=== PATIENT | male | born 1985 | race Caucasian/White ===

== ENCOUNTER 2017-09-26 09:36 | Inpatient (IN) | END 2017-09-30 11:15 | disposition home or self-care (01) | DRG 386 ==

== ENCOUNTER 2018-01-18 21:22 | Emergency (ER) | END 2018-01-18 23:51 | disposition home or self-care (01) ==

== ENCOUNTER 2018-10-27 12:36 | Inpatient (IN) | payer BC ==
[~2018-10-27] VITALS: Ht 162.6 cm; Wt 70.0 kg
[~2018-10-27 12:36] MED LIST: BALS750C6 PO; PRED20TA PO
[2018-10-27 12:40] VITALS: Ht 162.6 cm; Wt 70.0 kg
[2018-10-27] MEDS ORDERED: CEFTRIAXONE 1 GM/50 ML (PMX) 50 ML IVPB STA (12:47)
[2018-10-27] MEDS ORDERED: SODIUM CHLORIDE 0.9% 1L BAG IV* STA (12:47)
[2018-10-27] MEDS ORDERED: morphine 4 MG/ML VIAL IV STA (13:15)
[2018-10-27] MEDS ORDERED: ONDANSETRON 4 MG INJ IV STA (13:15)
[2018-10-27] MEDS ORDERED: SOD CHLORIDE 0.9% 0 ML IV ONE (14:09)
--- NOTE | 2018-10-27 14:14 | ERD ---
ER Documentation Chief Complaint Chief Complaint RIGHT FLANK PAIN X 4 DAYS, DENIES DYSURIA, +BLOOD IN STOOL HPI This is a 33-year-old male who presents for evaluation of right flank pain for the last 4 days, he has a history of ulcerative colitis, and has had intermittent rectal bleeding, this is normal for him per the patient. He endorses nausea and generalized weakness, he does have a history of anemia and has been transfused in the past. He has no cough or shortness of breath. He denies dysuria. ROS All systems reviewed and are negative except as per history of present illness. Medications Home Meds Active Scripts Balsalazide Disodium (Balsalazide Disodium) 750 Mg Capsule, 2250 MG PO TID for 30 Days, CAP Prov:ELROY RABAGO 09/30/17 Discontinued Scripts Prednisone* (Prednisone*) 20 Mg Tab, 40 MG PO DAILY for 6 Days, TAB Prov:MIGULE LARRY MD 01/18/18 Prednisone* (Prednisone*) 20 Mg Tab, 40 MG PO DAILY for 30 Days, TAB Prov:ELROY RABAGO 09/30/17 Allergies Allergies: Coded Allergies: No Known Allergy (Unverified , 10/27/18) PMhx/Soc History of Surgery: No Anesthesia Reaction: No Hx Neurological Disorder: No Hx Respiratory Disorders: No Hx Cardiac Disorders: No Hx Psychiatric Problems: No Hx Miscellaneous Medical Probl: Yes (gastritis. GI bleed, ULCERATIVE COLITIS ) Hx Alcohol Use: Yes (socially; "quit in March") Hx Substance Use: Yes (marijuana 2days ago) Hx Tobacco Use: No Smoking Status: Never smoker Physical Exam Vitals Vital Signs Date Temp Pulse Resp B/P (MAP) Pulse Ox O2 O2 Flow FiO2 Time Delivery Rate 10/27/18 98.6 90 16 110/66 99 Room Air 14:00 (81) 10/27/18 100.8 113 18 129/62 99 12:40 (84) Physical Exam Const: Mild distress Head: Atraumatic Eyes: Normal Conjunctiva ENT: Normal External Ears, Nose and Mouth. Neck: Full range of motion. No meningismus. Resp: Clear to auscultation bilaterally Cardio: Tachycardic with regular rhythm, no murmurs Abd: Soft, non tender, non distended, no rebound or guarding, no McBurney's point tenderness. Normal bowel sounds Skin: No petechiae or rashes Back: No midline or flank tenderness Ext: No cyanosis, or edema Neur: Awake and alert Psych: Normal Mood and Affect Result Diagram: 10/27/18 1300 10/27/18 1300 Results 24 hrs Laboratory Tests Test 10/27/18 12:47 10/27/18 13:00 10/27/18 13:09 Urine Color YELLOW Urine Clarity CLEAR Urine pH 5.0 Urine Specific [place] 1.019 Urine Ketones NEGATIVE mg/dL Urine Nitrite NEGATIVE mg/dL Urine Bilirubin NEGATIVE mg/dL Urine Urobilinogen NEGATIVE mg/dL Urine Leukocyte Esterase NEGATIVE [place]/ul Urine Hemoglobin NEGATIVE mg/dL Urine Glucose NEGATIVE mg/dL Urine Total Protein NEGATIVE mg/dl White Blood Count 7.2 10^3/ul Red Blood Count 4.19 10^6/ul Hemoglobin 8.0 g/dl Hematocrit 28.6 % Mean Corpuscular Volume 68.3 fl Mean Corpuscular Hemoglobin 19.1 pg Mean Corpuscular 28.0 g/dl Hemoglobin Concent Red Cell Distribution Width 21.0 % Platelet Count 481 10^3/UL Mean Platelet Volume 7.9 fl Immature Granulocytes % 0.400 % Neutrophils % 71.4 % Lymphocytes % 16.8 % Monocytes % 8.8 % Eosinophils % 1.9 % Basophils % 0.7 % Nucleated Red Blood Cells % 0.0 /100WBC Immature Granulocytes # 0.030 10^3/ul Neutrophils # 5.1 10^3/ul Lymphocytes # 1.2 10^3/ul Monocytes # 0.6 10^3/ul Eosinophils # 0.1 10^3/ul Basophils # 0.1 10^3/ul Nucleated Red Blood Cells # 0.0 10^3/ul Prothrombin Time 12.2 Sec Prothrombin Time Ratio 1.0 INR International 0.89 Normalized Ratio Activated Partial Thromboplast 31.3 Sec Time Sodium Level 140 mmol/L Potassium Level 4.2 mmol/L Chloride Level 106 mmol/L Carbon Dioxide Level 25 mmol/L Anion Gap 9 Blood Urea Nitrogen 9 mg/dl Creatinine 0.94 mg/dl Est Glomerular Filtrat > 60 mL/min Rate mL/min Glucose Level 147 mg/dl Calcium Level 8.6 mg/dl Total Bilirubin 0.3 mg/dl Direct Bilirubin 0.00 mg/dl Indirect Bilirubin 0.3 mg/dl Aspartate Amino Transf (AST/SGOT) 26 IU/L Alanine 16 IU/L Aminotransferase (ALT/SGPT) Alkaline Phosphatase 83 IU/L Troponin I < 0.012 ng/ml Total Protein 7.7 g/dl Albumin 3.6 g/dl Globulin 4.10 g/dl Albumin/Globulin Ratio 0.87 Lipase 76 U/L POC Venous Lactate 1.5 mmol/L Current Medications Medications Dose Sig/Giorgio Start Time Status Last (Trade) Ordered Route PRN Stop Time Admin Dose Reason Admin Sodium 2,100 ml BOLUS OVER 2 10/27/18 DC 10/27/18 Chloride HOURS STAT 12:47 10/27/18 13:06 (NS) IV* 12:48 Ceftriaxone 50 ml @ ONCE STAT 10/27/18 DC 10/27/18 Sodium 100 mls/hr IVPB 12:47 10/27/18 13:13 13:16 Morphine 4 mg ONCE STAT 10/27/18 DC 10/27/18 Sulfate IV 13:15 10/27/18 13:34 (morphine) 13:26 Ondansetron 4 mg ONCE STAT 10/27/18 DC 10/27/18 HCl (Zofran IV 13:15 10/27/18 13:34 Inj) 13:26 Sodium 0 ml @ 0 Q0M ONCE 10/27/18 DC Chloride mls/hr IV 14:09 10/27/18 14:11 Ondansetron 4 mg BRIDGE ORDER 10/27/18 HCl (Zofran PRN IV 14:30 Inj) NAUSEA/VOMITI 10/28/18 14:29 NG 650 mg ER BRIDGE 10/27/18 Acetaminophen PRN PO 14:30 (Tylenol .MILD PAIN 10/28/18 14:29 Tab) 1-3 OR TEMP Procedures/MDM This is a 33-year-old male who presents for evaluation of fever, as well as generalized weakness. Patient had no peritoneal signs on exam, given his temperature 100.8 and tachycardia code sepsis was called. His CT abdomen pelvis did not show any acute findings and his urinalysis was negative, he was dosed empirically with ceftriaxone, however he does not have a source of infection. Another significant finding was his hemoglobin 8.0, in the setting of fever and weakness, shared decision-making was made to transfuse, as the patient has symptoms concerning for symptomatic anemia. Primary differential consideration is infection versus a inflammatory bowel disease flare. EKG: Rate/Rhythm: Normal Sinus Rhythm QRS, ST, T-waves: No changes consistent w/ acute ischemia Impression: No evidence of ischemia or arrhythmia Accepting Care Team: Current data and ongoing care discussed. Primary: Destiny Consulting: none Outstanding Data: none Departure Diagnosis: Primary Impression: Fever Fever type: unspecified Qualified Codes: R50.9 - Fever, unspecified Additional Impression: Anemia Anemia type: unspecified type Qualified Codes: D64.9 - Anemia, unspecified Condition: Stable ELROY BOATENG MD Oct 27, 2018 14:14
[2018-10-27] MEDS ORDERED: ONDANSETRON 4 MG INJ IV PRN (14:30)
[2018-10-27] MEDS ORDERED: ACETAMINOPHEN 325 MG TAB PO PRN ×2 (14:30→18:00)
[2018-10-27 16:40] VITALS: BP 109/57; PULSE 71; RESP 18
--- NOTE | 2018-10-27 17:37 | HP ---
Date/Time of Note Date/Time of Note DATE: 10/27/18 TIME: 17:36 Assessment/Plan VTE Prophylaxis SCD contraindicated: low risk/ambulating Pharmacological prophylaxis: NA/contraindicated Pharm contraindication: bleeding Lines/Catheters IV Catheter Type (from Nrsg): Peripheral IV Assessment/Plan Hospital Course Chief complaint abdominal back pain History of present illness Back pain left greater than right for 1 week. No known aggravating or relieving factors. Denies any injury. Subjective fever. No previous similar pain. Over the last 2 weeks patient has lost his appetite.+ nausea. Abdominal pain unable to describe. No known aggravating or relieving factors. States he had a cheeseburger recently and was told to avoid cheeseburgers. After the cheese burger his left leg felt swollen. Has a history of colitis and states he is regular with his medicines. Has not seen GI in 1 year. -Hematochezia 2 weeks. Some darker stools as well. ER: Stable vital signs Past medical history Colitis suspected ulcerative colitis; colonoscopy all of you April 2017 Past tobacco Marijuana use Past surgical history None Social history Past tobacco; occasional marijuana no alcohol Family history No family history of early coronary disease cancer stroke Allergies No known drug allergies Review of systems Neuro: No loss of speech vision or headache Cardiovascular: No chest pain no dyspnea no edema Lungs: No cough no wheezing no fever Abdomen: Pain nausea diarrhea Genitourinary: Abdominal pain chills possible fever, no dysuria Musculoskeletal: Back pain no gait dysfunction no rash no itching no edema; one episode of left leg pain Psychiatry: The patient has a stable mood without any severe agitation anxiety depression Endocrine: No past diabetes dyslipidemia or thyroid dysfunction Hematological: Hematochezia possible melena no hematemesis PE No pallor icterus adenopathy JVD droop Regular no murmur gallop Clear Bs diminished present mild tender no rigidity rebound guarding Back: No point tenderness, no cvat No edema Assessment and plan 1. Colitis, stable, rule out C. difficile. 2. Hematochezia secondary to colitis stable observe. Transfuse if less than 7.5 3. Symptomatic anemia stable observe 4. Back pain, inflammatory arthritis? 5. Past tobacco 6. Substance/marijuana use Result Diagram: 10/27/18 1300 10/27/18 1300 Results 24hrs Laboratory Tests Test 10/27/18 12:47 10/27/18 13:00 10/27/18 13:09 10/27/18 14:33 Urine Color YELLOW Urine Clarity CLEAR Urine pH 5.0 Urine Specific [place] 1.019 Urine Ketones NEGATIVE Urine Nitrite NEGATIVE Urine Bilirubin NEGATIVE Urine Urobilinogen NEGATIVE Urine Leukocyte Esterase NEGATIVE Urine Hemoglobin NEGATIVE Urine Glucose NEGATIVE Urine Total Protein NEGATIVE White Blood Count 7.2 Red Blood Count 4.19 #L Hemoglobin 8.0 L Hematocrit 28.6 L Mean Corpuscular Volume 68.3 L Mean Corpuscular 19.1 #L Hemoglobin Mean Corpuscular 28.0 L Hemoglobin Concent Red Cell Distribution 21.0 #H Width Platelet Count 481 H Mean Platelet Volume 7.9 Immature Granulocytes % 0.400 Neutrophils % 71.4 Lymphocytes % 16.8 Monocytes % 8.8 Eosinophils % 1.9 Basophils % 0.7 Nucleated Red Blood 0.0 Cells % Immature Granulocytes # 0.030 Neutrophils # 5.1 Lymphocytes # 1.2 Monocytes # 0.6 Eosinophils # 0.1 Basophils # 0.1 Nucleated Red Blood 0.0 Cells # Prothrombin Time 12.2 Prothrombin Time Ratio 1.0 INR International 0.89 Normalized Ratio Activated 31.3 Partial Thromboplast Time Sodium Level 140 Potassium Level 4.2 Chloride Level 106 Carbon Dioxide Level 25 Anion Gap 9 Blood Urea Nitrogen 9 Creatinine 0.94 Est Glomerular Filtrat > 60 Rate mL/min Glucose Level 147 Calcium Level 8.6 Total Bilirubin 0.3 Direct Bilirubin 0.00 Indirect Bilirubin 0.3 Aspartate Amino 26 Transf (AST/SGOT) Alanine 16 Aminotransferase (ALT/SG PT) Alkaline Phosphatase 83 Troponin I < 0.012 Total Protein 7.7 Albumin 3.6 Globulin 4.10 H Albumin/Globulin Ratio 0.87 Lipase 76 POC Venous Lactate 1.5 Lactic Acid Level 0.7 HPI/ROS Admit Date/Time Admit Date/Time Oct 27, 2018 at 14:15 PMH/Family/Social Past Medical History Medications Current Medications Ondansetron HCl (Zofran Inj) 4 mg BRIDGE ORDER PRN IV NAUSEA/VOMITING; Start 10/27/18 at 14:30; Stop 10/28/18 at 14:29 Acetaminophen (Tylenol Tab) 650 mg ER BRIDGE PRN PO .MILD PAIN 1-3 OR TEMP; Start 10/27/18 at 14:30; Stop 10/28/18 at 14:29 Coded Allergies: No Known Allergy (Unverified , 10/27/18) Social History Smoking Status: Never smoker Exam/Review of Systems Vital Signs Vitals Vital Signs Date Temp Pulse Resp B/P (MAP) Pulse Ox O2 O2 Flow FiO2 Time Delivery Rate 10/27/18 98.9 71 18 109/57 96 Room Air 16:40 (74) JUDAH CROSS MD Oct 27, 2018 17:37
[2018-10-27] MEDS ORDERED: ACETAMINOPHEN 650 MG SUPP PR PRN (18:00)
[2018-10-27] MEDS ORDERED: NACL 0.9% 3 ML SYG IV SCH (18:00)
[2018-10-27] MEDS: DEXTROSE 5%-0.45% NACL 1,000 ML IV SCH (18:48)
[2018-10-27] MEDS: FAMOTIDINE 20 MG INJ IV SCH (20:08)
[2018-10-27 20:11] VITALS: BP 106/58; PULSE 80; RESP 18
[2018-10-27] MEDS: morphine 2 MG INJ IV PRN (20:14)
[2018-10-27] MEDS ORDERED: BALSALAZIDE 750 MG CAP PO SCH (21:00)
[2018-10-28] MEDS: morphine 2 MG INJ IV PRN ×5 (00:42→20:27)
[2018-10-28 01:52] VITALS: BP 109/60; PULSE 75; RESP 18
[2018-10-28] MEDS: DEXTROSE 5%-0.45% NACL 1,000 ML IV SCH ×3 (04:14→21:33)
[2018-10-28 07:14] VITALS: BP 105/65; PULSE 72; RESP 15
[2018-10-28] MEDS: FAMOTIDINE 20 MG INJ IV SCH ×2 (09:39→20:28)
[2018-10-28] MEDS: metroNIDAZOLE 500 MG/NS (PMX) 100 ML IVPB SCH ×3 (09:40→21:34)
--- NOTE | 2018-10-28 13:16 | CONS ---
Assessment/Plan Assessment/Plan Hospital Course (Demo Recall) Summary Assessment and Plan: Assessment: UC flare? -Elevated CRP/ESR, bloody diarrhea up to 4-5 episode per day Lower back pain Epigastric pain -PUD versus gastritis versus secondary to chronic marijuana use Chronic marijuana use Plan: PPI BID Clear Liquid diet Start Solu-Medrol 20 mg IV every 8 hours Form as he does not have Colazal therefore will stop and start Delzicol EGD/colonoscopy tomorrow Endoscopy - risks/benefits/alternatives/indications of procedure and sedation/anesthesia discussed with patient who states understanding and gives informed consent to proceed. Patient is in collaboration with Dr. Weeks CC: FREDDIE WEEKS MD ; Consultation Date/Type/Reason Admit Date/Time Oct 27, 2018 at 14:15 Date of Consultation: Oct 28, 2018 Type of Consult GI Reason for Consultation Anemia/Hematochezia - History fo UC? Date/Time of Note DATE: 10/28/18 TIME: 13:14 Hx of Present Illness This is a 33-year-old male with past medical history of anemia and diagnosis of UC in 2017 year ago at [facility]. Currently on mesalamine patient has not seen a GI physician in 1 year. He presented to the hospital with complaints of lower back pain associated diarrhea described as watery going up to 4-5 times per day and noted maroon blood in stool. With work-up patient noted to have iron deficiency anemia and has complains of epigastric pain without nausea/vomiting melena. CT abdomen pelvis without contrast was obtained showing no evidence of urolithiasis, obstructive uropathy, diverticulitis or appendicitis. No intra-peritoneal or retroperitoneal abscess noted. C. difficile was obtained and negative blood cultures x2 show no growth x1 day urine culture x24 hours shows no growth hemoglobin rechecked today shows a heme globin is 7.6 with microcytic indices. Weighted CRP/ESR. Given clinical picture we will start patient on Solu-Medrol 20 mg every 8 hours. We will prep patient and plan for endoscopic evaluation with EGD/colonoscopy tomorrow. Pending findings patient may also require CT enterography to assess small bowel. Review of Systems: A 12 system, review was conducted and is negative except as noted in the HPI or here. Past Medical History Home Meds Active Scripts Balsalazide Disodium (Balsalazide Disodium) 750 Mg Capsule, 2250 MG PO TID for 30 Days, CAP Prov:ELROY RABAGO 09/30/17 Discontinued Scripts Prednisone* (Prednisone*) 20 Mg Tab, 40 MG PO DAILY for 6 Days, TAB Prov:MIGUEL LARRY MD 01/18/18 Prednisone* (Prednisone*) 20 Mg Tab, 40 MG PO DAILY for 30 Days, TAB Prov:ELROY RABAGO 09/30/17 Medications Current Medications Ondansetron HCl (Zofran Inj) 4 mg BRIDGE ORDER PRN IV NAUSEA/VOMITING; Start 10/27/18 at 14:30; Stop 10/28/18 at 14:29 Acetaminophen (Tylenol Tab) 650 mg ER BRIDGE PRN PO .MILD PAIN 1-3 OR TEMP; Start 10/27/18 at 14:30; Stop 10/28/18 at 14:29 Balsalazide (Colazal) 2,250 mg TID PO ; Start 10/27/18 at 21:00; Status UNV Dextrose/Sodium Chloride 1,000 ml @ 100 mls/hr Q10H IV Last administered on 10/28/18at 04:14; Admin Dose 100 MLS/HR; Start 10/27/18 at 17:53 IV Flush (NS 3 ml) 3 ml PER PROTOCOL IV ; Start 10/27/18 at 18:00 Ondansetron HCl (Zofran Inj) 4 mg Q4 PRN IV NAUSEA/VOMITING; Start 10/27/18 at 18:00 Acetaminophen (Tylenol Tab) 650 mg Q6H PRN PO .PAIN 1-3 OR TEMP; Start 10/27/18 at 18:00 Acetaminophen (Tylenol Supp) 650 mg Q6H PRN [place] .PAIN 1-3 OR TEMP; Start 10/27/18 at 18:00 Acetaminophen/ Hydrocodone Bitart ([place] (5/325)) 1 tab Q6H PRN PO .MOD PAIN 4- 6; Start 10/27/18 at 18:00 Morphine Sulfate (morphine) 2 mg Q4H PRN IV .SEVERE PAIN 7-10 Last administered on 10/28/18at 09:40; Admin Dose 2 MG; Start 10/27/18 at 18:00 Famotidine (Pepcid Iv) 20 mg Q12 IV Last administered on 10/28/18at 09:39; Admin Dose 20 MG; Start 10/27/18 at 21:00 Metronidazole 100 ml @ 100 mls/hr Q8 IVPB Last administered on 10/28/18at 09: 40; Admin Dose 100 MLS/HR; Start 10/28/18 at 09:00 Allergies: Coded Allergies: No Known Allergy (Unverified , 10/27/18) Social History Smoking Status: Unknown if ever smoked Exam/Review of Systems Exam Vitals Vital Signs Date Temp Pulse Resp B/P (MAP) Pulse Ox O2 O2 Flow FiO2 Time Delivery Rate 10/28/18 99.2 72 15 105/65 98 Room Air 07:14 (78) Intake and Output 10/27/18 10/27/18 10/28/18 1515:00 23:00 07:00 IntakeIntake Total 1075 ml BalanceBalance 1075 ml Exam PHYSICAL EXAMINATION: GENERAL: Well developed, well nourished, alert & oriented x 3, in no acute distress SKIN: No lesions HEAD: Normocephalic, atraumatic, no tenderness. EYES: Pupils equal reactive to light and accommodation, no discharge. EARS/NOSE AND THROAT: Ears normal, nose normal. NECK: Supple, no masses CHEST: Inspection within normal limits. CARDIOVASCULAR: Heart: Regular rate and rhythm RESPIRATORY: Lungs clear to auscultation and percussion, no wheezing, no rubs GASTROINTESTINAL AND LIVER: Abdomen: Soft, non tenderness, non-distended, no hernias, no masses, normoactive bowel sounds. Rectal: Deferred. EXTREMITIES: No cyanosis, clubbing or edema. Results Result Diagram: 10/28/18 0806 10/28/18 0805 Results 24hrs Laboratory Tests Test 10/27/18 14:33 10/27/18 17:38 10/27/18 17:40 10/27/18 19:02 Lactic Acid Level 0.7 0.8 C-Reactive Protein 6.1 H Erythrocyte 45 H Sedimentation Rate Test 10/28/18 08:05 10/28/18 08:06 Sodium Level 138 Potassium Level 3.9 Chloride Level 107 Carbon Dioxide Level 25 Anion Gap 6 Blood Urea Nitrogen 6 L Creatinine 0.81 Est Glomerular Filtrat > 60 Rate mL/min Glucose Level 95 # Hemoglobin A1c 5.7 Calcium Level 8.1 L Phosphorus Level 3.3 Magnesium Level 1.7 Iron Level 17 L Total Iron Binding 293 Capacity Percent Iron 6 L Saturation Total Bilirubin 0.3 Direct Bilirubin 0.00 Indirect Bilirubin 0.3 Aspartate Amino 16 Transf (AST/SGOT) Alanine 18 Aminotransferase (ALT/ SGPT) Alkaline Phosphatase 68 Lactate Dehydrogenase 229 L Total Protein 6.3 # Albumin 2.9 L Globulin 3.40 H Albumin/Globulin Ratio 0.85 Lipase 62 Thyroid Stimulating 0.742 Hormone (TSH) White Blood Count 6.8 Red Blood Count 3.85 L Hemoglobin 7.6 L Hematocrit 26.5 L Mean Corpuscular 68.8 L Volume Mean Corpuscular 19.7 L Hemoglobin Mean Corpuscular 28.7 L Hemoglobin Concent Red Cell Distribution 20.8 H Width Platelet Count 433 H Mean Platelet Volume 7.9 Immature Granulocytes 0.400 % Neutrophils % 67.5 Lymphocytes % 15.9 Monocytes % 13.0 H Eosinophils % 2.8 Basophils % 0.4 Nucleated Red Blood 0.0 Cells % Immature Granulocytes 0.030 # Neutrophils # 4.6 Lymphocytes # 1.1 Monocytes # 0.9 Eosinophils # 0.2 Basophils # 0.0 Nucleated Red Blood 0.0 Cells # Medications Medication Current Medications Ondansetron HCl (Zofran Inj) 4 mg BRIDGE ORDER PRN IV NAUSEA/VOMITING; Start 10/27/18 at 14:30; Stop 10/28/18 at 14:29 Acetaminophen (Tylenol Tab) 650 mg ER BRIDGE PRN PO .MILD PAIN 1-3 OR TEMP; Start 10/27/18 at 14:30; Stop 10/28/18 at 14:29 Balsalazide (Colazal) 2,250 mg TID PO ; Start 10/27/18 at 21:00; Status UNV Dextrose/Sodium Chloride 1,000 ml @ 100 mls/hr Q10H IV Last administered on 10/28/18at 04:14; Admin Dose 100 MLS/HR; Start 10/27/18 at 17:53 IV Flush (NS 3 ml) 3 ml PER PROTOCOL IV ; Start 10/27/18 at 18:00 Ondansetron HCl (Zofran Inj) 4 mg Q4 PRN IV NAUSEA/VOMITING; Start 10/27/18 at 18:00 Acetaminophen (Tylenol Tab) 650 mg Q6H PRN PO .PAIN 1-3 OR TEMP; Start 10/27/18 at 18:00 Acetaminophen (Tylenol Supp) 650 mg Q6H PRN [place] .PAIN 1-3 OR TEMP; Start 10/27/18 at 18:00 Acetaminophen/ Hydrocodone Bitart ([place] (5/325)) 1 tab Q6H PRN PO .MOD PAIN 4- 6; Start 10/27/18 at 18:00 Morphine Sulfate (morphine) 2 mg Q4H PRN IV .SEVERE PAIN 7-10 Last administered on 10/28/18at 09:40; Admin Dose 2 MG; Start 10/27/18 at 18:00 Famotidine (Pepcid Iv) 20 mg Q12 IV Last administered on 10/28/18 09:39; Admin Dose 20 MG; Start 10/27/18 at 21:00 Metronidazole 100 ml @ 100 mls/hr Q8 IVPB Last administered on 10/28/18 09:40; Admin Dose 100 MLS/HR; Start 10/28/18 at 09:00 OFELIA CUNNINGHAM Oct 28, 2018 13:16
[2018-10-28] MEDS ORDERED: BISACODYL (EC) 5 MG TAB PO ONE (14:00)
[2018-10-28] MEDS: METHYLPREDNISOLONE 40 MG INJ IV SCH ×2 (14:17→21:33)
[2018-10-28 14:43] VITALS: BP 105/60; PULSE 75; RESP 15
--- NOTE | 2018-10-28 17:07 | PN ---
Date/Time of Note Date/Time of Note DATE: 10/28/18 TIME: 17:07 Assessment/Plan VTE Prophylaxis Risk score (from Ns)>0 risk: 1 SCD applied (from Ns): Yes Pharmacological prophylaxis: NA/contraindicated Pharm contraindication: bleeding Lines/Catheters IV Catheter Type (from [facility]): Peripheral IV Urinary Cath still in place: No Assessment/Plan Hospital Course SUBJECTIVE: Continues to complain of abdominal pain and bloody diarrhea. OBJECTIVE: Physical Exam General: Adequately build 33 year-old male lying in bed in no apparent distress. HEENT: Normocephalic, atraumatic. Eyes: Anicteric sclerae, conjunctivae clear. E NT: Nasal septum midline, oral mucosa moist. Neck supple, no JVD noticed. Respiratory: Bilaterally clear breath sounds. No use of accessory muscles of respiration. No adventitious breath sounds. Cardiovascular: S1, S2 heard. No murmurs or gallops. Abdomen: Soft, nontender, and nondistended. Bowel sounds positive in all 4 quadrants. Genitourinary: Deferred. Extremities: No cyanosis, no clubbing, no edema. Peripheral pulses palpable. Neurologic: Cranial nerves II through XII grossly intact. The patient is awake, alert, and oriented. Skin: Normal skin turgor. No skin rashes. Labs & Vitals per chart ASSESSMENT & PLAN 33-year-old male with a past medical history of anemia and history of ulcerative colitis. He presented to the emergency room with chief complaint of lower back pain with associated diarrhea and melena. The patient was noticed to have underlying microcytic, hypochromic anemia and was admitted to inpatient setting for further treatment and evaluation. 1. Abdominal pain. Etiology unclear. CT scan of the abdomen and pelvis negative for any acute findings. Continue H2 receptor blockers. Patient scheduled for esophagogastroduodenoscopy. 2. Possible underlying ulcerative colitis flare. Continue mesalamine. Continue IV Solu-Medrol. Being followed by gastroenterology. 3. Microcytic, hypochromic anemia. Continue to replace blood products as necessary. 4. Chronic marijuana use. Cessation advised. 5. Fluids, electrolytes, and nutrition. IV fluids. N.p.o. except for medications. 6. DVT prophylaxis Bilateral SCDs. 7. Plan. Continue mesalamine and IV Solu-Medrol. Replace blood products as needed. Await esophagogastroduodenoscopy and colonoscopy. The patient was seen in collaboration with Dr. Allison. Result Diagram: 10/28/18 0806 10/28/18 0805 Results 24hrs Laboratory Tests Test 10/27/18 17:38 10/27/18 17:40 10/27/18 19:02 10/28/18 08:05 C-Reactive Protein 6.1 H Lactic Acid Level 0.8 Erythrocyte 45 H Sedimentation Rate Sodium Level 138 Potassium Level 3.9 Chloride Level 107 Carbon Dioxide Level 25 Anion Gap 6 Blood Urea Nitrogen 6 L Creatinine 0.81 Est Glomerular Filtrat > 60 Rate mL/min Glucose Level 95 # Hemoglobin A1c 5.7 Calcium Level 8.1 L Phosphorus Level 3.3 Magnesium Level 1.7 Iron Level 17 L Total Iron Binding 293 Capacity Percent Iron 6 L Saturation Total Bilirubin 0.3 Direct Bilirubin 0.00 Indirect Bilirubin 0.3 Aspartate Amino 16 Transf (AST/SGOT) Alanine 18 Aminotransferase (ALT/ SGPT) Alkaline Phosphatase 68 Lactate Dehydrogenase 229 L Total Protein 6.3 # Albumin 2.9 L Globulin 3.40 H Albumin/Globulin Ratio 0.85 Lipase 62 Thyroid Stimulating 0.742 Hormone (TSH) Test 10/28/18 08:06 White Blood Count 6.8 Red Blood Count 3.85 L Hemoglobin 7.6 L Hematocrit 26.5 L Mean Corpuscular 68.8 L Volume Mean Corpuscular 19.7 L Hemoglobin Mean Corpuscular 28.7 L Hemoglobin Concent Red Cell Distribution 20.8 H Width Platelet Count 433 H Mean Platelet Volume 7.9 Immature Granulocytes 0.400 % Neutrophils % 67.5 Lymphocytes % 15.9 Monocytes % 13.0 H Eosinophils % 2.8 Basophils % 0.4 Nucleated Red Blood 0.0 Cells % Immature Granulocytes 0.030 # Neutrophils # 4.6 Lymphocytes # 1.1 Monocytes # 0.9 Eosinophils # 0.2 Basophils # 0.0 Nucleated Red Blood 0.0 Cells # Exam/Review of Systems Exam Vitals Vital Signs Date Temp Pulse Resp B/P (MAP) Pulse Ox O2 O2 Flow FiO2 Time Delivery Rate 10/28/18 99.4 75 15 105/60 98 Room Air 14:43 (75) Intake and Output 10/27/18 10/27/18 10/28/18 1414:59 22:59 06:59 IntakeIntake Total 1075 ml BalanceBalance 1075 ml Results Results 24hrs Laboratory Tests Test 10/27/18 17:38 10/27/18 17:40 10/27/18 19:02 10/28/18 08:05 C-Reactive Protein 6.1 H Lactic Acid Level 0.8 Erythrocyte 45 H Sedimentation Rate Sodium Level 138 Potassium Level 3.9 Chloride Level 107 Carbon Dioxide Level 25 Anion Gap 6 Blood Urea Nitrogen 6 L Creatinine 0.81 Est Glomerular Filtrat > 60 Rate mL/min Glucose Level 95 # Hemoglobin A1c 5.7 Calcium Level 8.1 L Phosphorus Level 3.3 Magnesium Level 1.7 Iron Level 17 L Total Iron Binding 293 Capacity Percent Iron 6 L Saturation Total Bilirubin 0.3 Direct Bilirubin 0.00 Indirect Bilirubin 0.3 Aspartate Amino 16 Transf (AST/SGOT) Alanine 18 Aminotransferase (ALT/ SGPT) Alkaline Phosphatase 68 Lactate Dehydrogenase 229 L Total Protein 6.3 # Albumin 2.9 L Globulin 3.40 H Albumin/Globulin Ratio 0.85 Lipase 62 Thyroid Stimulating 0.742 Hormone (TSH) Test 10/28/18 08:06 White Blood Count 6.8 Red Blood Count 3.85 L Hemoglobin 7.6 L Hematocrit 26.5 L Mean Corpuscular 68.8 L Volume Mean Corpuscular 19.7 L Hemoglobin Mean Corpuscular 28.7 L Hemoglobin Concent Red Cell Distribution 20.8 H Width Platelet Count 433 H Mean Platelet Volume 7.9 Immature Granulocytes 0.400 % Neutrophils % 67.5 Lymphocytes % 15.9 Monocytes % 13.0 H Eosinophils % 2.8 Basophils % 0.4 Nucleated Red Blood 0.0 Cells % Immature Granulocytes 0.030 # Neutrophils # 4.6 Lymphocytes # 1.1 Monocytes # 0.9 Eosinophils # 0.2 Basophils # 0.0 Nucleated Red Blood 0.0 Cells # Medications Medication Current Medications Dextrose/Sodium Chloride 1,000 ml @ 100 mls/hr Q10H IV Last administered on 10/28/18at 04:14; Admin Dose 100 MLS/HR; Start 10/27/18 at 17:53 IV Flush (NS 3 ml) 3 ml PER PROTOCOL IV ; Start 10/27/18 at 18:00 Ondansetron HCl (Zofran Inj) 4 mg Q4 PRN IV NAUSEA/VOMITING; Start 10/27/18 at 18:00 Acetaminophen (Tylenol Tab) 650 mg Q6H PRN PO .PAIN 1-3 OR TEMP; Start 10/27/18 at 18:00 Acetaminophen (Tylenol Supp) 650 mg Q6H PRN [place] .PAIN 1-3 OR TEMP; Start 10/27/18 at 18:00 Acetaminophen/ Hydrocodone Bitart ([place] (5/325)) 1 tab Q6H PRN PO .MOD PAIN 4- 6; Start 10/27/18 at 18:00 Morphine Sulfate (morphine) 2 mg Q4H PRN IV .SEVERE PAIN 7-10 Last administered on 10/28/18at 15:53; Admin Dose 2 MG; Start 10/27/18 at 18:00 Famotidine (Pepcid Iv) 20 mg Q12 IV Last administered on 10/28/18at 09:39; Admin Dose 20 MG; Start 10/27/18 at 21:00 Metronidazole 100 ml @ 100 mls/hr Q8 IVPB Last administered on 10/28/18at 14:18; Admin Dose 100 MLS/HR; Start 10/28/18 at 09:00 Methylprednisolone Sodium Succinate (Solu-Medrol) 20 mg Q8 IV Last administered on 10/28/18at 14:17; Admin Dose 20 MG; Start 10/28/18 at 14:00 Magnesium Citrate (Citroma) 300 ml ONCE ONCE PO ; Start 10/28/18 at 17:30; Stop 10/28/18 at 17:31 Polyethylene Glycol (Miralax) 119 gm ONCE ONCE PO ; Start 10/28/18 at 18:30; Stop 10/28/18 at 18:31 Polyethylene Glycol (Miralax) 119 gm 2ND DOSE (GI PREP) ONCE PO ; Start 10/29/18 at 06:00; Stop 10/29/18 at 06:01 Bisacodyl (Dulcolax) 10 mg 2ND DOSE (GI PREP) ONCE PO ; Start 10/29/18 at 08:00; Stop 10/29/18 at 08:01 Mesalamine (Delzicol Dr) 800 mg TID PO ; Start 10/28/18 at 21:00 MADELAINE MCCALL NP Oct 28, 2018 17:07
[2018-10-28] MEDS ORDERED: MAGNESIUM CITRATE 300 ML BTL PO ONE (17:30)
[2018-10-28] MEDS ORDERED: POLYETHYLENE GLYCOL 3350 119 GM POWDER PO ONE (18:30)
[2018-10-28 19:43] VITALS: BP 105/64; PULSE 70; RESP 18
[2018-10-28] MEDS: MESALAMINE (EC) 400 MG CAP PO SCH (20:28)
[2018-10-28] MEDS: HYDROCODONE/APAP (5/325) TAB PO PRN (23:23)
[2018-10-29] VITALS (10 sets, daily range): BP systolic 88–114; BP diastolic 47–68; PULSE 54–74; RESP 14–24
[2018-10-29] MEDS: METHYLPREDNISOLONE 40 MG INJ IV SCH ×3 (05:22→21:14)
[2018-10-29] MEDS: metroNIDAZOLE 500 MG/NS (PMX) 100 ML IVPB SCH ×3 (05:23→21:13)
[2018-10-29] MEDS ORDERED: POLYETHYLENE GLYCOL 3350 119 GM POWDER PO ONE (06:00)
[2018-10-29] MEDS ORDERED: BISACODYL (EC) 5 MG TAB PO ONE (08:00)
[2018-10-29] MEDS: FAMOTIDINE 20 MG INJ IV SCH ×2 (08:10→21:13)
[2018-10-29] MEDS: MESALAMINE (EC) 400 MG CAP PO SCH ×3 (08:10→21:12)
[2018-10-29] MEDS: morphine 2 MG INJ IV PRN ×3 (09:06→19:51)
[2018-10-29] MEDS: DEXTROSE 5%-0.45% NACL 1,000 ML IV SCH ×2 (11:30→19:53)
--- NOTE | 2018-10-29 13:26 | PN ---
Date/Time of Note Date/Time of Note DATE: 10/29/18 TIME: 13:26 Assessment/Plan VTE Prophylaxis Risk score (from Nsg)>0 risk: 0 SCD applied (from Nsg): No SCD contraindicated: other Pharmacological prophylaxis: NA/contraindicated Pharm contraindication: low risk/ambulating, bleeding Lines/Catheters IV C[facility]ter Type (from [facility]): Peripheral IV Urinary Cath still in place: No Assessment/Plan Hospital Course SUBJECTIVE: Continues to complain of abdominal pain. Denies any blood in stool. OBJECTIVE: Physical Exam General: Adequately build 33 year-old male lying in bed in no apparent distress. HEENT: Normocephalic, atraumatic. Eyes: Anicteric sclerae, conjunctivae clear. ENT: Nasal septum midline, oral mucosa moist. Neck supple, no JVD noticed. Respiratory: Bilaterally clear breath sounds. No use of accessory muscles of respiration. No adventitious breath sounds. Cardiovascular: S1, S2 heard. No murmurs or gallops. Abdomen: Soft, nontender, and nondistended. Bowel sounds positive in all 4 quadrants. Genitourinary: Deferred. Extremities: No cyanosis, no clubbing, no edema. Peripheral pulses palpable. Neurologic: Cranial nerves II through XII grossly intact. The patient is awake, alert, and oriented. Skin: Normal skin turgor. No skin rashes. Labs & Vitals per chart ASSESSMENT & PLAN 33-year-old male with a past medical history of anemia and history of ulcerative colitis. He presented to the emergency room with chief complaint of lower back pain with associated diarrhea and melena. The patient was noticed to have underlying microcytic, hypochromic anemia and was admitted to inpatient setting for further treatment and evaluation. 1. Abdominal pain. Etiology unclear. CT scan of the abdomen and pelvis negative for any acute findings. Continue H2 receptor blockers. Patient scheduled for esophagogastroduodenoscopy. 2. Possible underlying ulcerative colitis flare. Continue mesalamine. Continue IV Solu-Medrol. Being followed by gastroenterology. 3. Microcytic, hypochromic anemia. Continue to replace blood products as necessary. 4. Chronic marijuana use. Cessation advised. 5. Fluids, electrolytes, and nutrition. IV fluids. N.p.o. except for medications. 6. DVT prophylaxis Bilateral SCDs. 7. Plan. Continue mesalamine and IV Solu-Medrol. Replace blood products as needed. Await esophagogastroduodenoscopy and colonoscopy. The patient was seen in collaboration with Dr. Allison. Result Diagram: 10/29/18 0653 10/29/18 0653 Results 24hrs Laboratory Tests Test 10/29/18 06:53 White Blood Count 6.3 Red Blood Count 4.14 L Hemoglobin 8.1 L Hematocrit 28.8 L Mean Corpuscular Volume 69.6 L Mean Corpuscular Hemoglobin 19.6 L Mean Corpuscular Hemoglobin Concent 28.1 L Red Cell Distribution Width 21.1 H Platelet Count 512 H Mean Platelet Volume 8.1 Immature Granulocytes % 0.300 Neutrophils % 86.1 H Lymphocytes % 7.8 L Monocytes % 5.6 Eosinophils % 0.0 Basophils % 0.2 Nucleated Red Blood Cells % 0.0 Immature Granulocytes # 0.020 Neutrophils # 5.4 Lymphocytes # 0.5 L Monocytes # 0.4 Eosinophils # 0.0 Basophils # 0.0 Nucleated Red Blood Cells # 0.0 Sodium Level 139 Potassium Level 4.2 Chloride Level 106 Carbon Dioxide Level 28 Anion Gap 5 Blood Urea Nitrogen 8 Creatinine 0.76 Est Glomerular Filtrat Rate mL/min > 60 Glucose Level 128 Calcium Level 8.8 Phosphorus Level 3.8 Magnesium Level 2.0 Total Bilirubin 0.3 Direct Bilirubin 0.00 Indirect Bilirubin 0.3 Aspartate Amino Transf (AST/SGOT) 19 Alanine Aminotransferase (ALT/SGPT) 18 Alkaline Phosphatase 72 Total Protein 7.0 Albumin 3.4 Globulin 3.60 H Albumin/Globulin Ratio 0.94 Exam/Review of Systems Exam Vitals Vital Signs Date Temp Pulse Resp B/P (MAP) Pulse Ox O2 O2 Flow FiO2 Time Delivery Rate 10/29/18 98.0 59 16 113/60 100 Room Air 07:52 (77) Intake and Output 10/28/18 10/28/18 10/29/18 1515:00 23:00 07:00 IntakeIntake Total 100 ml 1625 ml 600 ml BalanceBalance 100 ml 1625 ml 600 ml Results Results 24hrs Laboratory Tests Test 10/29/18 06:53 White Blood Count 6.3 Red Blood Count 4.14 L Hemoglobin 8.1 L Hematocrit 28.8 L Mean Corpuscular Volume 69.6 L Mean Corpuscular Hemoglobin 19.6 L Mean Corpuscular Hemoglobin Concent 28.1 L Red Cell Distribution Width 21.1 H Platelet Count 512 H Mean Platelet Volume 8.1 Immature Granulocytes % 0.300 Neutrophils % 86.1 H Lymphocytes % 7.8 L Monocytes % 5.6 Eosinophils % 0.0 Basophils % 0.2 Nucleated Red Blood Cells % 0.0 Immature Granulocytes # 0.020 Neutrophils # 5.4 Lymphocytes # 0.5 L Monocytes # 0.4 Eosinophils # 0.0 Basophils # 0.0 Nucleated Red Blood Cells # 0.0 Sodium Level 139 Potassium Level 4.2 Chloride Level 106 Carbon Dioxide Level 28 Anion Gap 5 Blood Urea Nitrogen 8 Creatinine 0.76 Est Glomerular Filtrat Rate mL/min > 60 Glucose Level 128 Calcium Level 8.8 Phosphorus Level 3.8 Magnesium Level 2.0 Total Bilirubin 0.3 Direct Bilirubin 0.00 Indirect Bilirubin 0.3 Aspartate Amino Transf (AST/SGOT) 19 Alanine Aminotransferase (ALT/SGPT) 18 Alkaline Phosphatase 72 Total Protein 7.0 Albumin 3.4 Globulin 3.60 H Albumin/Globulin Ratio 0.94 Medications Medication Current Medications Dextrose/Sodium Chloride 1,000 ml @ 100 mls/hr Q10H IV Last administered on 10/29/18at 11:30; Admin Dose 100 MLS/HR; Start 10/27/18 at 17:53 IV Flush (NS 3 ml) 3 ml PER PROTOCOL IV ; Start 10/27/18 at 18:00 Ondansetron HCl (Zofran Inj) 4 mg Q4 PRN IV NAUSEA/VOMITING; Start 10/27/18 at 18:00 Acetaminophen (Tylenol Tab) 650 mg Q6H PRN PO .PAIN 1-3 OR TEMP; Start 10/27/18 at 18:00 Acetaminophen (Tylenol Supp) 650 mg Q6H PRN [place] .PAIN 1-3 OR TEMP; Start 10/27/18 at 18:00 Acetaminophen/ Hydrocodone Bitart ([place] (5/325)) 1 tab Q6H PRN PO .MOD PAIN 4- 6 Last administered on 10/28/18at 23:23; Admin Dose 1 TAB; Start 10/27/18 at 18:00 Morphine Sulfate (morphine) 2 mg Q4H PRN IV .SEVERE PAIN 7-10 Last administered on 10/29/18at 09:06; Admin Dose 2 MG; Start 10/27/18 at 18:00 Famotidine (Pepcid Iv) 20 mg Q12 IV Last administered on 10/29/18 08:10; Admin Dose 20 MG; Start 10/27/18 at 21:00 Metronidazole 100 ml @ 100 mls/hr Q8 IVPB Last administered on 10/29/18 05:23; Admin Dose 100 MLS/HR; Start 10/28/18 at 09:00 Methylprednisolone Sodium Succinate (Solu-Medrol) 20 mg Q8 IV Last administered on 10/29/18 05:22; Admin Dose 20 MG; Start 10/28/18 at 14:00 Mesalamine (Delzicol Dr) 800 mg TID PO Last administered on 10/29/18 08:10; Admin Dose 800 MG; Start 10/28/18 at 21:00 MADELAINE MCCALL NP Oct 29, 2018 13:26
--- NOTE | 2018-10-29 17:02 | PREAC ---
Date/Time of Note Date/Time of Note DATE: 10/29/18 TIME: 17:01 Anesthesia Eval and Record Evaluation Time Pre-Procedure Interview DATE: 10/29/18 TIME: 17:01 Age 33 Sex male NPO: 8 hrs Preoperative diagnosis Anemia, Ulcerative Colitis Planned procedure EGD, Colonoscopy Past Medical History Past Medical History: Includes Heme: Anemia Surgery & Anesthesia Issues No known issue Meds Anticoagulation: No Beta Ericka within 24 hr: No Reason Beta Ericka not given: Pt. not on B-Ericka Active Scripts Balsalazide Disodium (Balsalazide Disodium) 750 Mg Capsule, 2250 MG PO TID for 30 Days, CAP Prov:ELROY RABAGO 09/30/17 Discontinued Scripts Prednisone* (Prednisone*) 20 Mg Tab, 40 MG PO DAILY for 6 Days, TAB Prov:MIGUEL LARRY MD 01/18/18 Prednisone* (Prednisone*) 20 Mg Tab, 40 MG PO DAILY for 30 Days, TAB Prov:ELROY RABAGO 09/30/17 Current Medications Dextrose/Sodium Chloride 1,000 ml @ 100 mls/hr Q10H IV Last administered on 10/29/18at 11:30; Admin Dose 100 MLS/HR; Start 10/27/18 at 17:53 IV Flush (NS 3 ml) 3 ml PER PROTOCOL IV ; Start 10/27/18 at 18:00 Ondansetron HCl (Zofran Inj) 4 mg Q4 PRN IV NAUSEA/VOMITING; Start 10/27/18 at 18:00 Acetaminophen (Tylenol Tab) 650 mg Q6H PRN PO .PAIN 1-3 OR TEMP; Start 10/27/18 at 18:00 Acetaminophen (Tylenol Supp) 650 mg Q6H PRN [place] .PAIN 1-3 OR TEMP; Start 10/27/18 at 18:00 Acetaminophen/ Hydrocodone Bitart ([place] (5/325)) 1 tab Q6H PRN PO .MOD PAIN 4- 6 Last administered on 10/28/18at 23:23; Admin Dose 1 TAB; Start 10/27/18 at 18:00 Morphine Sulfate (morphine) 2 mg Q4H PRN IV .SEVERE PAIN 7-10 Last administered on 10/29/18at 13:42; Admin Dose 2 MG; Start 10/27/18 at 18:00 Famotidine (Pepcid Iv) 20 mg Q12 IV Last administered on 10/29/18at 08:10; Admin Dose 20 MG; Start 10/27/18 at 21:00 Metronidazole 100 ml @ 100 mls/hr Q8 IVPB Last administered on 10/29/18at 13:43; Admin Dose 100 MLS/HR; Start 10/28/18 at 09:00 Methylprednisolone Sodium Succinate (Solu-Medrol) 20 mg Q8 IV Last administered on 10/29/18at 13:42; Admin Dose 20 MG; Start 10/28/18 at 14:00 Mesalamine (Delzicol Dr) 800 mg TID PO Last administered on 10/29/18at 13:43; Admin Dose 800 MG; Start 10/28/18 at 21:00 Meds reviewed: Yes Allergies Coded Allergies: No Known Allergy (Unverified , 10/27/18) Allergies Reviewed: Yes Labs/Studies Labs Reviewed: Reviewed by anesthesiologist Result Diagram: 10/29/18 0653 10/29/18 0653 Laboratory Tests 10/29/18 06:53 test: N/A Studies: ECG (n/a), CXR (n/a) Pre-procedure Exam Last vitals Vital Signs Date Temp Pulse Resp B/P (MAP) Pulse Ox O2 O2 Flow FiO2 Time Delivery Rate 10/29/18 97.8 67 18 114/62 100 Room Air 15:22 (79) Airway: Adequate mouth opening, Adequate thyromental dist Mallampati: Mallampati II Teeth: Normal Lung: Normal Heart: Normal ASA Physical Status ASA physical status: 2 Emergency: None Planned Anesthetic General/MAC: MAC Planned Pain Management Parenteral pain med Pre-operative Attestations Prior to commencing anesthesia and surgery, the patient was re-evaluated, there was verification of: *The patient's identity *The results of appropriate recent lab work and preoperative vital signs *The above evaluation not changing prior to induction *Anesthetic plan, risk benefits, alternative and complications discussed with patient/family; questions answered; patient/family understands, accepts and wishes to proceed. ALEX BLANCO MD Oct 29, 2018 17:02
[2018-10-29] MEDS ORDERED: PROPOFOL 60 ML ONE (17:25)
--- NOTE | 2018-10-29 17:26 | PAC ---
Date/Time of Note Date/Time of Note DATE: 10/29/18 TIME: 17:26 Post-Anesthesia Notes Post-Anesthesia Note Last documented vital signs Vital Signs Date Temp Pulse Resp B/P (MAP) Pulse Ox O2 O2 Flow FiO2 Time Delivery Rate 10/29/18 97.8 67 18 114/62 100 Room Air 17:22 (79) Activity: WNL Respiratory function: WNL Cardiovascular function: WNL Mental status: Baseline Pain reasonably controlled: Yes Hydration appropriate: Yes Nausea/Vomiting absent: Yes ALEX BLANCO MD Oct 29, 2018 17:26
[2018-10-29] MEDS ORDERED: EPHEDrine 25 MG/5 ML SYG IV PRN (17:30)
[2018-10-29] MEDS ORDERED: ONDANSETRON 4 MG INJ IV PRN (17:30)
[2018-10-29] MEDS ORDERED: METOCLOPRAMIDE 10 MG INJ IV PRN (17:30)
[2018-10-29] MEDS ORDERED: LABETALOL HCL 20MG INJ IV PRN (17:30)
[2018-10-29] MEDS ORDERED: HYDROmorphONE 1 MG/5 ML IV SYRINGE IV PRN ×2 (17:30)
[2018-10-29] MEDS ORDERED: FENTAnyl 50 MCG/ML VIAL IV PRN (17:30)
[2018-10-30] MEDS: morphine 2 MG INJ IV PRN ×4 (00:12→22:44)
[2018-10-30] MEDS: HYDROCODONE/APAP (5/325) TAB PO PRN (02:30)
[2018-10-30 02:42] VITALS: BP 140/69; PULSE 93; RESP 17
[2018-10-30] MEDS: ONDANSETRON 4 MG INJ IV PRN ×2 (05:53→10:55)
[2018-10-30] MEDS: DEXTROSE 5%-0.45% NACL 1,000 ML IV SCH ×3 (05:54→20:43)
[2018-10-30] MEDS: METHYLPREDNISOLONE 40 MG INJ IV SCH ×3 (05:54→21:36)
[2018-10-30] MEDS: metroNIDAZOLE 500 MG/NS (PMX) 100 ML IVPB SCH ×3 (05:54→21:36)
[2018-10-30 07:33] VITALS: BP 137/70; PULSE 47; RESP 16
[2018-10-30] MEDS: FAMOTIDINE 20 MG INJ IV SCH ×2 (07:55→20:43)
[2018-10-30] MEDS: MESALAMINE (EC) 400 MG CAP PO SCH ×3 (09:00→20:43)
[2018-10-30] MEDS ORDERED: HYDROmorphONE 2 MG/ML SYG IV PRN (09:19)
--- NOTE | 2018-10-30 09:23 | PN ---
Date/Time of Note Date/Time of Note DATE: 10/30/18 TIME: : Assessment/Plan VTE Prophylaxis Risk score (from Ns)>0 risk: 3 SCD applied (from Ns): Yes Pharmacological prophylaxis: NA/contraindicated Pharm contraindication: low risk/ambulating Lines/Catheters [facility] Peripheral IV Urinary Cath still in place: No Assessment/Plan Hospital Course SUBJECTIVE: Continues to complain of abdominal pain. Denies any blood in stool. OBJECTIVE: Physical Exam General: Adequately build 33 year-old male lying in bed in no apparent distress. HEENT: Normocephalic, atraumatic. Eyes: Anicteric sclerae, conjunctivae clear. ENT: Nasal septum midline, oral mucosa moist. Neck supple, no JVD noticed. Respiratory: Bilaterally clear breath sounds. No use of accessory muscles of respiration. No adventitious breath sounds. Cardiovascular: S1, S2 heard. No murmurs or gallops. Abdomen: Soft and nondistended. Left upper quadrant tenderness. Bowel sounds positive in all 4 quadrants. Genitourinary: Deferred. Extremities: No cyanosis, no clubbing, no edema. Peripheral pulses palpable. Neurologic: Cranial nerves II through XII grossly intact. The patient is awake, alert, and oriented. Skin: Normal skin turgor. No skin rashes. Labs & Vitals per chart ASSESSMENT & PLAN 33-year-old male with a past medical history of anemia and history of ulcerative colitis. He presented to the emergency room with chief complaint of lower back pain with associated diarrhea and melena. The patient was noticed to have underlying microcytic, hypochromic anemia and was admitted to inpatient setting for further treatment and evaluation. 1. Abdominal pain. Etiology unclear. CT scan of the abdomen and pelvis negative for any acute findings. Continue H2 receptor blockers. Status post esophagogastroduodenoscopy on 10/29/2018 that showed mild distal esophagitis and gastritis. Continue PPI. 2. Possible underlying ulcerative colitis flare. Status post a colonoscopy on 10/29/2018 that showed significantly active colitis from the sigmoid to the proximal ascending colon with rectal sparing, more consistent with Crohn's disease. Continue mesalamine. Continue IV Solu-Medrol. Being followed by gastroenterology. 3. Microcytic, hypochromic anemia. Continue to replace blood products as necessary. 4. Chronic marijuana use. Cessation advised. 5. Iron deficiency. Continue iron supplements. 6. Fluids, electrolytes, and nutrition. Full liquids. 7. DVT prophylaxis Bilateral SCDs. 7. Plan. Continue mesalamine and IV Solu-Medrol. Replace blood products as needed. Continues to have significant abdominal pain and requiring high-dose opioids for pain control. Disposition: Discharge planning is to discharge the patient home once clinically stable. The patient was seen in collaboration with Dr. Allison. Result Diagram: 10/30/18 0645 10/30/18 0645 Results 24hrs Laboratory Tests Test 10/30/18 06:45 White Blood Count 10.6 # Red Blood Count 4.10 L Hemoglobin 8.1 L Hematocrit 28.2 L Mean Corpuscular Volume 68.8 L Mean Corpuscular Hemoglobin 19.8 L Mean Corpuscular Hemoglobin Concent 28.7 L Red Cell Distribution Width 21.1 H Platelet Count 461 H Mean Platelet Volume 8.4 Immature Granulocytes % 0.400 Neutrophils % 81.5 H Lymphocytes % 9.3 L Monocytes % 8.6 Eosinophils % 0.0 Basophils % 0.2 Nucleated Red Blood Cells % 0.0 Immature Granulocytes # 0.040 H Neutrophils # 8.7 H Lymphocytes # 1.0 Monocytes # 0.9 Eosinophils # 0.0 Basophils # 0.0 Nucleated Red Blood Cells # 0.0 Sodium Level 139 Potassium Level 3.8 Chloride Level 107 Carbon Dioxide Level 26 Anion Gap 6 Blood Urea Nitrogen 11 Creatinine 0.96 Est Glomerular Filtrat Rate mL/min > 60 Glucose Level 117 Calcium Level 8.6 Phosphorus Level 4.4 Magnesium Level 1.9 Total Bilirubin 0.2 Direct Bilirubin 0.00 Indirect Bilirubin 0.2 Aspartate Amino Transf (AST/SGOT) 24 Alanine Aminotransferase (ALT/SGPT) 15 Alkaline Phosphatase 68 Total Protein 6.5 Albumin 3.2 L Globulin 3.30 H Albumin/Globulin Ratio 0.96 Exam/Review of Systems Exam Vitals Vital Signs Date Temp Pulse Resp B/P (MAP) Pulse Ox O2 O2 Flow FiO2 Time Delivery Rate 10/30/18 98.3 47 16 137/70 100 07:33 (92) 10/29/18 Room Air 18:01 Intake and Output 10/29/18 10/29/18 10/30/18 1515:00 23:00 07:00 IntakeIntake Total 200 ml 650 ml 600 ml BalanceBalance 200 ml 650 ml 600 ml Results Results 24hrs Laboratory Tests Test 10/30/18 06:45 White Blood Count 10.6 # Red Blood Count 4.10 L Hemoglobin 8.1 L Hematocrit 28.2 L Mean Corpuscular Volume 68.8 L Mean Corpuscular Hemoglobin 19.8 L Mean Corpuscular Hemoglobin Concent 28.7 L Red Cell Distribution Width 21.1 H Platelet Count 461 H Mean Platelet Volume 8.4 Immature Granulocytes % 0.400 Neutrophils % 81.5 H Lymphocytes % 9.3 L Monocytes % 8.6 Eosinophils % 0.0 Basophils % 0.2 Nucleated Red Blood Cells % 0.0 Immature Granulocytes # 0.040 H Neutrophils # 8.7 H Lymphocytes # 1.0 Monocytes # 0.9 Eosinophils # 0.0 Basophils # 0.0 Nucleated Red Blood Cells # 0.0 Sodium Level 139 Potassium Level 3.8 Chloride Level 107 Carbon Dioxide Level 26 Anion Gap 6 Blood Urea Nitrogen 11 Creatinine 0.96 Est Glomerular Filtrat Rate mL/min > 60 Glucose Level 117 Calcium Level 8.6 Phosphorus Level 4.4 Magnesium Level 1.9 Total Bilirubin 0.2 Direct Bilirubin 0.00 Indirect Bilirubin 0.2 Aspartate Amino Transf (AST/SGOT) 24 Alanine Aminotransferase (ALT/SGPT) 15 Alkaline Phosphatase 68 Total Protein 6.5 Albumin 3.2 L Globulin 3.30 H Albumin/Globulin Ratio 0.96 Medications Medication Current Medications Dextrose/Sodium Chloride 1,000 ml @ 100 mls/hr Q10H IV Last administered on 10/30/18at 05:54; Admin Dose 100 MLS/HR; Start 10/27/18 at 17:53 IV Flush (NS 3 ml) 3 ml PER PROTOCOL IV ; Start 10/27/18 at 18:00 Ondansetron HCl (Zofran Inj) 4 mg Q4 PRN IV NAUSEA/VOMITING Last administered on 10/30/18at 05:53; Admin Dose 4 MG; Start 10/27/18 at 18:00 Acetaminophen (Tylenol Tab) 650 mg Q6H PRN PO .PAIN 1-3 OR TEMP; Start 10/27/18 at 18:00 Acetaminophen (Tylenol Supp) 650 mg Q6H PRN [place] .PAIN 1-3 OR TEMP; Start 10/27/18 at 18:00 Acetaminophen/ Hydrocodone Bitart ([place] (5/325)) 1 tab Q6H PRN PO .MOD PAIN 4- 6 Last administered on 10/30/18 02:30; Admin Dose 1 TAB; Start 10/27/18 at 18:00 Morphine Sulfate (morphine) 2 mg Q4H PRN IV .SEVERE PAIN 7-10 Last administered on 10/30/18 05:55; Admin Dose 2 MG; Start 10/27/18 at 18:00 Famotidine (Pepcid Iv) 20 mg Q12 IV Last administered on 10/30/18 07:55; Admin Dose 20 MG; Start 10/27/18 at 21:00 Metronidazole 100 ml @ 100 mls/hr Q8 IVPB Last administered on 10/30/18 05:54; Admin Dose 100 MLS/HR; Start 10/28/18 at 09:00 Methylprednisolone Sodium Succinate (Solu-Medrol) 20 mg Q8 IV Last administered on 10/30/18 05:54; Admin Dose 20 MG; Start 10/28/18 at 14:00 Mesalamine (Delzicol Dr) 800 mg TID PO Last administered on 10/29/18 21:12; Admin Dose 800 MG; Start 10/28/18 at 21:00 Hydromorphone HCl (Dilaudid) 1.5 mg ONCE PRN IV SEVERE PAIN LEVEL 7-10; Start 10/30/18 at 09:30; Status MADELAINE MORENO NP Oct 30, 2018 09:23
[2018-10-30] MEDS ORDERED: BARIUM SULFATE 0.1% 450 ML BTL (VOLUMEN) PO ONE (10:45)
[2018-10-30] MEDS ORDERED: SOD CHLORIDE 0.9% 100 ML ONE (11:50)
[2018-10-30] MEDS ORDERED: IOHEXOL 300MG/ML 150 ML BTL ONE (11:50)
[2018-10-30] MEDS ORDERED: GLUCAGON 1 MG INJ ONE (12:18)
[2018-10-30] MEDS: SOD FERRIC GLUC COMPLX 125 MG in SOD CHLORIDE 0.9% 100 ML IVPB SCH (13:31)
[2018-10-30 15:34] VITALS: BP 113/65; PULSE 52; RESP 16
--- NOTE | 2018-10-30 16:23 | PN ---
Date/Time of Note Date/Time of Note DATE: 10/30/18 TIME: 16:16 Assessment/Plan VTE Prophylaxis Risk score (from Nsg)>0 risk: 3 SCD applied (from Nsg): Yes Pharmacological prophylaxis: other (scds) Lines/Catheters IV [facility]ter Type (from [facility]): Peripheral IV Urinary Cath still in place: No Assessment/Plan Hospital Course Summary Assessment and Plan: Assessment: UC flare -Elevated CRP/ESR, bloody diarrhea up to 4-5 episode per day Colonoscopy 10/29/2018 Significant to Gareth active colitis from the sigmoid to the proximal ascending colon with rectal sparing. More consistent with Crohn's disease by distribution as well as appearance. Will double biopsies obtained Normal terminal ileum. Biopsies obtained. Moderate size internal hemorrhoids. Epigastric pain EGD 10/29/2018 Mild distal esophagitis. Mild gastritis. Rule out H. pylori infection. Biopsies obtained. Otherwise normal EGD Lower back pain -CT Multiple wedge shaped regions of hypoenhancement and nonenhancement of the left kidney, worse in the lower pole. Findings concerning for left pyelonephritis verses renal infarctions. -Work-up per hospitalist as indicated Chronic marijuana use Plan: PPI BID Solu-Medrol 20 mg IV every 8 hours Continue Delzicol Await pathology Will advance diet to low residue If patient is symptomatically stable we will change to Medrol to prednisone 30 mg p.o. twice daily Patient is in collaboration with Dr. Weeks Subjective: Course reviewed with nursing staff Patient interviewed and examined All labs, imaging and other results reviewed The patient states he feels better today, no c/o abd pain no bm noted today discussed results of EGD/colon bx pending PHYSICAL EXAMINATION: GENERAL: Well developed, well nourished, alert & oriented x 3, in no acute distress SKIN: No lesions HEAD: Normocephalic, atraumatic, no tenderness. EYES: Pupils equal reactive to light and accommodation, no discharge. EARS/NOSE AND THROAT: Ears normal, nose normal. NECK: Supple, no masses CHEST: Inspection within normal limits. CARDIOVASCULAR: Heart: Regular rate and rhythm RESPIRATORY: Lungs clear to auscultation and percussion, no wheezing, no rubs GASTROINTESTINAL AND LIVER: Abdomen: Soft, non tenderness, non-distended, no hernias, no masses, normoactive bowel sounds. Rectal: Deferred. EXTREMITIES: No cyanosis, clubbing or edema. Result Diagram: 10/30/18 0645 10/30/18 0645 Results 24hrs Laboratory Tests Test 10/30/18 06:45 White Blood Count 10.6 # Red Blood Count 4.10 L Hemoglobin 8.1 L Hematocrit 28.2 L Mean Corpuscular Volume 68.8 L Mean Corpuscular Hemoglobin 19.8 L Mean Corpuscular Hemoglobin Concent 28.7 L Red Cell Distribution Width 21.1 H Platelet Count 461 H Mean Platelet Volume 8.4 Immature Granulocytes % 0.400 Neutrophils % 81.5 H Lymphocytes % 9.3 L Monocytes % 8.6 Eosinophils % 0.0 Basophils % 0.2 Nucleated Red Blood Cells % 0.0 Immature Granulocytes # 0.040 H Neutrophils # 8.7 H Lymphocytes # 1.0 Monocytes # 0.9 Eosinophils # 0.0 Basophils # 0.0 Nucleated Red Blood Cells # 0.0 Sodium Level 139 Potassium Level 3.8 Chloride Level 107 Carbon Dioxide Level 26 Anion Gap 6 Blood Urea Nitrogen 11 Creatinine 0.96 Est Glomerular Filtrat Rate mL/min > 60 Glucose Level 117 Calcium Level 8.6 Phosphorus Level 4.4 Magnesium Level 1.9 Total Bilirubin 0.2 Direct Bilirubin 0.00 Indirect Bilirubin 0.2 Aspartate Amino Transf (AST/SGOT) 24 Alanine Aminotransferase (ALT/SGPT) 15 Alkaline Phosphatase 68 Total Protein 6.5 Albumin 3.2 L Globulin 3.30 H Albumin/Globulin Ratio 0.96 Exam/Review of Systems Exam Vitals Vital Signs Date Temp Pulse Resp B/P (MAP) Pulse Ox O2 O2 Flow FiO2 Time Delivery Rate 10/30/18 97.9 52 16 113/65 99 Room Air 15:34 (81) Intake and Output 10/29/18 10/29/18 10/30/18 1515:00 23:00 07:00 IntakeIntake Total 200 ml 650 ml 600 ml BalanceBalance 200 ml 650 ml 600 ml Results Results 24hrs Laboratory Tests Test 10/30/18 06:45 White Blood Count 10.6 # Red Blood Count 4.10 L Hemoglobin 8.1 L Hematocrit 28.2 L Mean Corpuscular Volume 68.8 L Mean Corpuscular Hemoglobin 19.8 L Mean Corpuscular Hemoglobin Concent 28.7 L Red Cell Distribution Width 21.1 H Platelet Count 461 H Mean Platelet Volume 8.4 Immature Granulocytes % 0.400 Neutrophils % 81.5 H Lymphocytes % 9.3 L Monocytes % 8.6 Eosinophils % 0.0 Basophils % 0.2 Nucleated Red Blood Cells % 0.0 Immature Granulocytes # 0.040 H Neutrophils # 8.7 H Lymphocytes # 1.0 Monocytes # 0.9 Eosinophils # 0.0 Basophils # 0.0 Nucleated Red Blood Cells # 0.0 Sodium Level 139 Potassium Level 3.8 Chloride Level 107 Carbon Dioxide Level 26 Anion Gap 6 Blood Urea Nitrogen 11 Creatinine 0.96 Est Glomerular Filtrat Rate mL/min > 60 Glucose Level 117 Calcium Level 8.6 Phosphorus Level 4.4 Magnesium Level 1.9 Total Bilirubin 0.2 Direct Bilirubin 0.00 Indirect Bilirubin 0.2 Aspartate Amino Transf (AST/SGOT) 24 Alanine Aminotransferase (ALT/SGPT) 15 Alkaline Phosphatase 68 Total Protein 6.5 Albumin 3.2 L Globulin 3.30 H Albumin/Globulin Ratio 0.96 Medications Medication Current Medications Dextrose/Sodium Chloride 1,000 ml @ 100 mls/hr Q10H IV Last administered on 10/30/18at 05:54; Admin Dose 100 MLS/HR; Start 10/27/18 at 17:53 IV Flush (NS 3 ml) 3 ml PER PROTOCOL IV ; Start 10/27/18 at 18:00 Ondansetron HCl (Zofran Inj) 4 mg Q4 PRN IV NAUSEA/VOMITING Last administered on 10/30/18at 10:55; Admin Dose 4 MG; Start 10/27/18 at 18:00 Acetaminophen (Tylenol Tab) 650 mg Q6H PRN PO .PAIN 1-3 OR TEMP; Start 10/27/18 at 18:00 Acetaminophen (Tylenol Supp) 650 mg Q6H PRN [place] .PAIN 1-3 OR TEMP; Start 10/27/18 at 18:00 Acetaminophen/ Hydrocodone Bitart ([place] (5/325)) 1 tab Q6H PRN PO .MOD PAIN 4- 6 Last administered on 10/30/18at 02:30; Admin Dose 1 TAB; Start 10/27/18 at 18:00 Morphine Sulfate (morphine) 2 mg Q4H PRN IV .SEVERE PAIN 7-10 Last administered on 10/30/18at 05:55; Admin Dose 2 MG; Start 10/27/18 at 18:00 Famotidine (Pepcid Iv) 20 mg Q12 IV Last administered on 10/30/18 07:55; Admin Dose 20 MG; Start 10/27/18 at 21:00 Metronidazole 100 ml @ 100 mls/hr Q8 IVPB Last administered on 10/30/18at 15:24; Admin Dose 100 MLS/HR; Start 10/28/18 at 09:00 Methylprednisolone Sodium Succinate (Solu-Medrol) 20 mg Q8 IV Last administered on 10/30/18 13:55; Admin Dose 20 MG; Start 10/28/18 at 14:00 Mesalamine (Delzicol Dr) 800 mg TID PO Last administered on 10/30/18 13:56; Admin Dose 800 MG; Start 10/28/18 at 21:00 Ferric Sodium Gluconate Complex 125 mg/Sodium Chloride 100 ml @ 100 mls/hr DAILY@1300 IVPB Last administered on 10/30/18 13:31; Admin Dose 100 MLS/HR; Start 10/30/18 at 13:00; Stop 11/01/18 at 13:59 OFELIA CUNNINGHAM Oct 30, 2018 16:23
--- NOTE | 2018-10-30 19:21 | CONS ---
Assessment/Plan Assessment/Plan Hospital Course (Demo Recall) Patient is a 33-year-old male who was admitted to the hospital because of back pain more on the left side than the right side. He is known to have a history of ulcerative colitis. He was also found to be anemic. He underwent CT scan of the abdomen and pelvis today and that showed : Multiple wedge shaped regions of hypoenhancement and nonenhancement of the left kidney, worse in the lower pole. Findings concerning for left pyelonephritis verses renal infarctions, although no renal vascular abnormality is seen on this limited portal venous phase of contrast. Correlate with clinical history and urinalysis. Mild bowel wall thickening and loss of haustral features of the transverse colon and descending colon. Findings may be seen with inflammatory bowel disease. Limited evaluation of the small bowel due to poor distension. Small bowel appears unremarkable. Mild degenerative changes and sclerosis of the sacroiliac joints with mild ankylosis on the right. Correlate for sacroiliitis. The patient denies any history of fall or trauma. He denies any urinary tract infection. No heart disease or cardiac arrhythmias. No peripheral vascular disease. Urine culture did not show any growth. 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 I discussed it with the hospitalist and the patient may benefit from a vascular consultation and consider anticoagulation. This may not reverse the damage that happened to the lower part of the kidney that may be will help protect the remaining part of the kidney. Consultation Date/Type/Reason Admit Date/Time Oct 27, 2018 at 14:15 Date of Consultation: Oct 30, 2018 Type of Consult Urology Reason for Consultation Infarction of the lower half of the left kidney on CT scan with intravenous contrast Requesting Provider: JUDAH CROSS MD Date/Time of Note DATE: 10/30/18 TIME: 19:04 Hx of Present Illness Patient is a 33-year-old male who was admitted to the hospital because of back pain more on the left side than the right side. He is known to have a history of ulcerative colitis. He was also found to be anemic. He underwent CT scan of the abdomen and pelvis today and that showed : Multiple wedge shaped regions of hypoenhancement and nonenhancement of the left kidney, worse in the lower pole. Findings concerning for left pyelonephritis verses renal infarctions, although no renal vascular abnormality is seen on this limited portal venous phase of contrast. Correlate with clinical history and urinalysis. Mild bowel wall thickening and loss of haustral features of the transverse colon and descending colon. Findings may be seen with inflammatory bowel disease. Limited evaluation of the small bowel due to poor distension. Small bowel appears unremarkable. Mild degenerative changes and sclerosis of the sacroiliac joints with mild ankylosis on the right. Correlate for sacroiliitis. The patient denies any history of fall or trauma. He denies any urinary tract infection. No heart disease or cardiac arrhythmias. No peripheral vascular disease. Constitutional: no complaints Eyes: no complaints ENT: no complaints Respiratory: No shortness of breath, No wheezing Cardiovascular: No chest pain Gastrointestinal: diarrhea Genitourinary: flank pain (Left side); No dysuria, No hematuria Musculoskeletal: no complaints Skin: no complaints Neurologic: no complaints Endocrine: no complaints Psychological: anxiety, other (Patient is upset as his did not let him see his 2 children and he was very depressed about it) Past Medical History Medical History: colitis, other (Question history of ulcerative colitis. Anemia) Home Meds Active Scripts Balsalazide Disodium (Balsalazide Disodium) 750 Mg Capsule, 2250 MG PO TID for 30 Days, CAP Prov:ELROY RABAGO 09/30/17 Discontinued Scripts Prednisone* (Prednisone*) 20 Mg Tab, 40 MG PO DAILY for 6 Days, TAB Prov:MIGUEL LARRY MD 01/18/18 Prednisone* (Prednisone*) 20 Mg Tab, 40 MG PO DAILY for 30 Days, TAB Prov:ELROY RABAGO 09/30/17 Medications Current Medications Dextrose/Sodium Chloride 1,000 ml @ 100 mls/hr Q10H IV Last administered on 05/08at 05:54; Admin Dose 100 MLS/HR; Start 10/27/18 at 17:53 IV Flush (NS 3 ml) 3 ml PER PROTOCOL IV ; Start 10/27/18 at 18:00 Ondansetron HCl (Zofran Inj) 4 mg Q4 PRN IV NAUSEA/VOMITING Last administered on 10/30/18at 10:55; Admin Dose 4 MG; Start 10/27/18 at 18:00 Acetaminophen (Tylenol Tab) 650 mg Q6H PRN PO .PAIN 1-3 OR TEMP; Start 10/27/18 at 18:00 Acetaminophen (Tylenol Supp) 650 mg Q6H PRN [place] .PAIN 1-3 OR TEMP; Start 10/27/18 at 18:00 Acetaminophen/ Hydrocodone Bitart ([place] (5/325)) 1 tab Q6H PRN PO .MOD PAIN 4- 6 Last administered on 10/30/18 02:30; Admin Dose 1 TAB; Start 10/27/18 at 18:00 Morphine Sulfate (morphine) 2 mg Q4H PRN IV .SEVERE PAIN 7-10 Last administered on 10/30/18 18:26; Admin Dose 2 MG; Start 10/27/18 at 18:00 Famotidine (Pepcid Iv) 20 mg Q12 IV Last administered on 10/30/18 07:55; Admin Dose 20 MG; Start 10/27/18 at 21:00 Metronidazole 100 ml @ 100 mls/hr Q8 IVPB Last administered on 10/30/18 15:24; Admin Dose 100 MLS/HR; Start 10/28/18 at 09:00 Methylprednisolone Sodium Succinate (Solu-Medrol) 20 mg Q8 IV Last administered on 10/30/18 13:55; Admin Dose 20 MG; Start 10/28/18 at 14:00 Mesalamine (Delzicol Dr) 800 mg TID PO Last administered on 10/30/18 13:56; Admin Dose 800 MG; Start 10/28/18 at 21:00 Ferric Sodium Gluconate Complex 125 mg/Sodium Chloride 100 ml @ 100 mls/hr DAILY@1300 IVPB Last administered on 10/30/18 13:31; Admin Dose 100 MLS/HR; Start 10/30/18 at 13:00; Stop 11/01/18 at 13:59 Allergies: Coded Allergies: No Known Allergy (Unverified , 10/27/18) Past Surgical History Past Surgical Hx: no surgical history, endoscopy (GI) Social History Alcohol Use: none Smoking Status: Unknown if ever smoked Drug Use: marijuana Exam/Review of Systems Exam Vitals Vital Signs Date Temp Pulse Resp B/P (MAP) Pulse Ox O2 O2 Flow FiO2 Time Delivery Rate 10/30/18 97.9 52 16 113/65 99 Room Air 15:34 (81) Intake and Output 10/29/18 10/29/18 10/30/18 1515:00 23:00 07:00 IntakeIntake Total 200 ml 650 ml 600 ml BalanceBalance 200 ml 650 ml 600 ml Constitutional: alert Psych: anxiety Head: normocephalic Eyes: nl conjunctiva ENMT: nl external ears & nose Neck: supple Respiratory: normal air movement; No wheezing Cardiovascular: No jugular venous distention (JVD) Gastrointestinal: soft Genitourinary - Male: nl penis, nl scrotum, CVA tenderness (Left side) Musculoskeletal: nl extremities to inspection Extremities: No calf tenderness Neurological: nl mental status Skin: nl turgor Results Result Diagram: 10/30/18 0645 10/30/18 0645 Results 24hrs Laboratory Tests Test 10/30/18 06:45 White Blood Count 10.6 # Red Blood Count 4.10 L Hemoglobin 8.1 L Hematocrit 28.2 L Mean Corpuscular Volume 68.8 L Mean Corpuscular Hemoglobin 19.8 L Mean Corpuscular Hemoglobin Concent 28.7 L Red Cell Distribution Width 21.1 H Platelet Count 461 H Mean Platelet Volume 8.4 Immature Granulocytes % 0.400 Neutrophils % 81.5 H Lymphocytes % 9.3 L Monocytes % 8.6 Eosinophils % 0.0 Basophils % 0.2 Nucleated Red Blood Cells % 0.0 Immature Granulocytes # 0.040 H Neutrophils # 8.7 H Lymphocytes # 1.0 Monocytes # 0.9 Eosinophils # 0.0 Basophils # 0.0 Nucleated Red Blood Cells # 0.0 Sodium Level 139 Potassium Level 3.8 Chloride Level 107 Carbon Dioxide Level 26 Anion Gap 6 Blood Urea Nitrogen 11 Creatinine 0.96 Est Glomerular Filtrat Rate mL/min > 60 Glucose Level 117 Calcium Level 8.6 Phosphorus Level 4.4 Magnesium Level 1.9 Total Bilirubin 0.2 Direct Bilirubin 0.00 Indirect Bilirubin 0.2 Aspartate Amino Transf (AST/SGOT) 24 Alanine Aminotransferase (ALT/SGPT) 15 Alkaline Phosphatase 68 Total Protein 6.5 Albumin 3.2 L Globulin 3.30 H Albumin/Globulin Ratio 0.[address] scan of the abdomen and pelvis showed: Multiple wedge shaped regions of hypoenhancement and nonenhancement of the left kidney, worse in the lower pole. Findings concerning for left pyelonephritis verses renal infarctions, although no renal vascular abnormality is seen on this limited portal venous phase of contrast. Correlate with clinical history and urinalysis. Mild bowel wall thickening and loss of haustral features of the transverse colon and descending colon. Findings may be seen with inflammatory bowel disease. Limited evaluation of the small bowel due to poor distension. Small bowel appears unremarkable. Mild degenerative changes and sclerosis of the sacroiliac joints with mild ankylosis on the right. Correlate for sacroiliitis. Medications Medication Current Medications Dextrose/Sodium Chloride 1,000 ml @ 100 mls/hr Q10H IV Last administered on 10/30/18 05:54; Admin Dose 100 MLS/HR; Start 10/27/18 at 17:53 IV Flush (NS 3 ml) 3 ml PER PROTOCOL IV ; Start 10/27/18 at 18:00 Ondansetron HCl (Zofran Inj) 4 mg Q4 PRN IV NAUSEA/VOMITING Last administered on 10/30/18 10:55; Admin Dose 4 MG; Start 10/27/18 at 18:00 Acetaminophen (Tylenol Tab) 650 mg Q6H PRN PO .PAIN 1-3 OR TEMP; Start 10/27/18 at 18:00 Acetaminophen (Tylenol Supp) 650 mg Q6H PRN [place] .PAIN 1-3 OR TEMP; Start 10/27/18 at 18:00 Acetaminophen/ Hydrocodone Bitart ([place] (5/325)) 1 tab Q6H PRN PO .MOD PAIN 4- 6 Last administered on 10/30/18 02:30; Admin Dose 1 TAB; Start 10/27/18 at 18:00 Morphine Sulfate (morphine) 2 mg Q4H PRN IV .SEVERE PAIN 7-10 Last administered on 10/30/18 18:26; Admin Dose 2 MG; Start 10/27/18 at 18:00 Famotidine (Pepcid Iv) 20 mg Q12 IV Last administered on 10/30/18 07:55; Admin Dose 20 MG; Start 10/27/18 at 21:00 Metronidazole 100 ml @ 100 mls/hr Q8 IVPB Last administered on 10/30/18 15:24; Admin Dose 100 MLS/HR; Start 10/28/18 at 09:00 Methylprednisolone Sodium Succinate (Solu-Medrol) 20 mg Q8 IV Last administered on 10/30/18 13:55; Admin Dose 20 MG; Start 10/28/18 at 14:00 Mesalamine (Delzicol Dr) 800 mg TID PO Last administered on 10/30/18at 13:56; Admin Dose 800 MG; Start 10/28/18 at 21:00 Ferric Sodium Gluconate Complex 125 mg/Sodium Chloride 100 ml @ 100 mls/hr DAILY@1300 IVPB Last administered on 10/30/18at 13:31; Admin Dose 100 MLS/HR; Start 10/30/18 at 13:00; Stop 11/01/18 at 13:59 AMERICO ZUNIGA MD Oct 30, 2018 19:15
[2018-10-30 19:55] VITALS: BP 115/67; PULSE 46; RESP 17
[2018-10-31 02:37] VITALS: BP 106/62; PULSE 54; RESP 18
[2018-10-31] MEDS: morphine 2 MG INJ IV PRN (03:10)
[2018-10-31] MEDS ORDERED: KETOROLAC 15 MG INJ IV ONE (04:49)
[2018-10-31] MEDS: metroNIDAZOLE 500 MG/NS (PMX) 100 ML IVPB SCH (05:40)
[2018-10-31] MEDS: METHYLPREDNISOLONE 40 MG INJ IV SCH ×3 (05:41→21:16)
[2018-10-31 07:34] VITALS: BP 117/60; PULSE 65; RESP 18
--- NOTE | 2018-10-31 08:17 | CONS ---
Consult Date/Type/Reason Admit Date/Time Oct 27, 2018 at 14:15 Initial Consult Date 10/30/18 Type of Consultation: Urology Reason for Consultation Infarction of lower part of left kidney Requesting Provider: JUDAH CROSS MD Date/Time of Note DATE: 10/31/18 TIME: 08:14 Subjective Patient is comfortable sitting up in the chair and states his pain is 1-2. Objective Vitals Vital Signs Date Temp Pulse Resp B/P (MAP) Pulse Ox O2 O2 Flow FiO2 Time Delivery Rate 10/31/18 97.9 65 18 117/60 100 07:34 (79) 10/30/18 Room Air 19:55 Intake and Output 10/30/18 10/30/18 10/31/18 1515:00 23:00 07:00 IntakeIntake Total 400 ml 1300 ml 700 ml BalanceBalance 400 ml 1300 ml 700 ml Exam Mild left flank tenderness. Abdomen is soft. Results/Medications Result Diagram: 10/30/18 0645 10/30/18 0645 Results 24 hrs Laboratory Tests Test 10/30/18 17:45 Urine Color YELLOW Urine Clarity CLEAR Urine pH 6.0 Urine Specific [place] 1.045 H Urine Ketones NEGATIVE Urine Nitrite NEGATIVE Urine Bilirubin NEGATIVE Urine Urobilinogen NEGATIVE Urine Leukocyte Esterase NEGATIVE Urine Hemoglobin NEGATIVE Urine Glucose 1+ H Urine Total Protein NEGATIVE Home Meds Active Scripts Balsalazide Disodium (Balsalazide Disodium) 750 Mg Capsule, 2250 MG PO TID for 30 Days, CAP Prov:ELROY RABAGO 09/30/17 Discontinued Scripts Prednisone* (Prednisone*) 20 Mg Tab, 40 MG PO DAILY for 6 Days, TAB Prov:MIGUEL LARRY MD 01/18/18 Prednisone* (Prednisone*) 20 Mg Tab, 40 MG PO DAILY for 30 Days, TAB Prov:ELROY RABAGO 09/30/17 Medications Current Medications Dextrose/Sodium Chloride 1,000 ml @ 100 mls/hr Q10H IV Last administered on 10/30/18at 20:43; Admin Dose 100 MLS/HR; Start 10/27/18 at 17:53 IV Flush (NS 3 ml) 3 ml PER PROTOCOL IV ; Start 10/27/18 at 18:00 Ondansetron HCl (Zofran Inj) 4 mg Q4 PRN IV NAUSEA/VOMITING Last administered on 6/12/19at 10:55; Admin Dose 4 MG; Start 10/27/18 at 18:00 Acetaminophen (Tylenol Tab) 650 mg Q6H PRN PO .PAIN 1-3 OR TEMP; Start 10/27/18 at 18:00 Acetaminophen (Tylenol Supp) 650 mg Q6H PRN OR .PAIN 1-3 OR TEMP; Start 10/27/18 at 18:00 Acetaminophen/ Hydrocodone Bitart ([place] (5/325)) 1 tab Q6H PRN PO .MOD PAIN 4- 6 Last administered on 10/30/18 02:30; Admin Dose 1 TAB; Start 10/27/18 at 18:00 Morphine Sulfate (morphine) 2 mg Q4H PRN IV .SEVERE PAIN 7-10 Last administered on 10/31/18 03:10; Admin Dose 2 MG; Start 10/27/18 at 18:00 Famotidine (Pepcid Iv) 20 mg Q12 IV Last administered on 10/30/18 20:43; Admin Dose 20 MG; Start 10/27/18 at 21:00 Methylprednisolone Sodium Succinate (Solu-Medrol) 20 mg Q8 IV Last administered on 10/31/18 05:41; Admin Dose 20 MG; Start 10/28/18 at 14:00 Mesalamine (Delzicol Dr) 800 mg TID PO Last administered on 10/30/18 20:43; Admin Dose 800 MG; Start 10/28/18 at 21:00 Ferric Sodium Gluconate Complex 125 mg/Sodium Chloride 100 ml @ 100 mls/hr DAILY@1300 IVPB Last administered on 10/30/18 13:31; Admin Dose 100 MLS/HR; Start 10/30/18 at 13:00; Stop 11/01/18 at 13:59 Assessment/Plan Hospital Course (Demo Recall) Patient is a 33-year-old male who was admitted to the hospital because of back pain more on the left side than the right side. He is known to have a history of ulcerative colitis. He was also found to be anemic. He underwent CT scan of the abdomen and pelvis today and that showed : Multiple wedge shaped regions of hypoenhancement and nonenhancement of the left kidney, worse in the lower pole. Findings concerning for left pyelonephritis verses renal infarctions, although no renal vascular abnormality is seen on this limited portal venous phase of contrast. Correlate with clinical history and urinalysis. Mild bowel wall thickening and loss of haustral features of the transverse colon and descending colon. Findings may be seen with inflammatory bowel disease. Limited evaluation of the small bowel due to poor distension. Small bowel appears unremarkable. Mild degenerative changes and sclerosis of the sacroiliac joints with mild ankylosis on the right. Correlate for sacroiliitis. The patient denies any history of fall or trauma. He denies any urinary tract infection. No heart disease or cardiac arrhythmias. No peripheral vascular disease. Urine culture did not show any growth. Patient is comfortable and his pain is 1-2 out of 10. Awaiting the vascular consultation. AMERICO ZUNIGA MD Oct 31, 2018 08:17
[2018-10-31] MEDS: MESALAMINE (EC) 400 MG CAP PO SCH ×3 (08:19→21:16)
[2018-10-31] MEDS: FAMOTIDINE 20 MG INJ IV SCH ×2 (08:20→21:16)
--- NOTE | 2018-10-31 09:40 | PN ---
Date/Time of Note Date/Time of Note DATE: 10/31/18 TIME: 09:39 Assessment/Plan VTE Prophylaxis Risk score (from Ns)>0 risk: 1 SCD applied (from Ns): No SCD contraindicated: other Pharmacological prophylaxis: NA/contraindicated Pharm contraindication: low risk/ambulating Lines/Catheters [facility] Saline Lock Urinary Cath still in place: No Assessment/Plan Hospital Course SUBJECTIVE: Continues to complain of abdominal pain, although improved. Denies any blood in stool. OBJECTIVE: Physical Exam General: Adequately build 33 year-old male lying in bed in no apparent distress. HEENT: Normocephalic, atraumatic. Eyes: Anicteric sclerae, conjunctivae clear. ENT: Nasal septum midline, oral mucosa moist. Neck supple, no JVD noticed. Respiratory: Bilaterally clear breath sounds. No use of accessory muscles of respiration. No adventitious breath sounds. Cardiovascular: S1, S2 heard. No murmurs or gallops. Abdomen: Soft and nondistended. Left upper quadrant tenderness. Bowel sounds positive in all 4 quadrants. Genitourinary: Deferred. Extremities: No cyanosis, no clubbing, no edema. Peripheral pulses palpable. Neurologic: Cranial nerves II through XII grossly intact. The patient is awake, alert, and oriented. Skin: Normal skin turgor. No skin rashes. Labs & Vitals per chart ASSESSMENT & PLAN 33-year-old male with a past medical history of anemia and history of ulcerative colitis. He presented to the emergency room with chief complaint of lower back pain with associated diarrhea and melena. The patient was noticed to have underlying microcytic, hypochromic anemia and was admitted to inpatient setting for further treatment and evaluation. 1. Abdominal pain. Status post esophagogastroduodenoscopy on 10/29/2018 that showed mild distal esophagitis and gastritis. Continue H2 receptor blockers. 2. Possible underlying ulcerative colitis flare. Status post colonoscopy on 10/29/2018 that showed significantly active colitis from the sigmoid to the proximal ascending colon with rectal sparing, more consistent with Crohn's disease. Continue mesalamine. Continue IV Solu-Medrol. Being followed by gastroenterology. 3. 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 Incidental finding on 10/30/2018. Status post urology evaluation who recommended vascular surgery and hematology evaluation. Hematology and vascular surgery consult has been obtained. 4. Possible underlying hypercoagulable state secondary to Crohn's disease. Hematology consult has been obtained. 5. Microcytic, hypochromic anemia. Continue to replace blood products as necessary. 6. Chronic marijuana use. Cessation advised. 7. Iron deficiency. Continue iron supplements. 8. Fluids, electrolytes, and nutrition. Full liquids. 9. DVT prophylaxis Bilateral SCDs. 10. Plan. Continue mesalamine and IV Solu-Medrol. Replace blood products as needed. Await vascular surgery and hematology input. Disposition: Discharge planning is to discharge the patient home once clinically stable. The patient was seen in collaboration with Dr. Allison. Result Diagram: 10/31/1872610/31/18726 Results 24hrs Laboratory Tests Test 10/30/18 17:45 10/31/18 07:27 Urine Color YELLOW Urine Clarity CLEAR Urine pH 6.0 Urine Specific [place] 1.045 H Urine Ketones NEGATIVE Urine Nitrite NEGATIVE Urine Bilirubin NEGATIVE Urine Urobilinogen NEGATIVE Urine Leukocyte Esterase NEGATIVE Urine Hemoglobin NEGATIVE Urine Glucose 1+ H Urine Total Protein NEGATIVE White Blood Count 15.2 #H Red Blood Count 4.02 L Hemoglobin 8.0 L Hematocrit 28.0 L Mean Corpuscular Volume 69.7 L Mean Corpuscular Hemoglobin 19.9 L Mean Corpuscular Hemoglobin Concent 28.6 L Red Cell Distribution Width 20.7 H Platelet Count 439 H Mean Platelet Volume 8.4 Immature Granulocytes % 0.500 H Neutrophils % 88.8 H Lymphocytes % 4.0 L Monocytes % 6.6 Eosinophils % 0.0 Basophils % 0.1 Nucleated Red Blood Cells % 0.0 Immature Granulocytes # 0.080 H Neutrophils # 13.5 H Lymphocytes # 0.6 L Monocytes # 1.0 H Eosinophils # 0.0 Basophils # 0.0 Nucleated Red Blood Cells # 0.0 Sodium Level 139 Potassium Level 4.3 Chloride Level 104 Carbon Dioxide Level 31 Anion Gap 4 L Blood Urea Nitrogen 10 Creatinine 1.06 Est Glomerular Filtrat Rate mL/min > 60 Glucose Level 106 Calcium Level 8.8 Phosphorus Level 3.7 Magnesium Level 1.9 Exam/Review of Systems Exam Vitals Vital Signs Date Temp Pulse Resp B/P (MAP) Pulse Ox O2 O2 Flow FiO2 Time Delivery Rate 10/31/18 97.9 65 18 117/60 100 07:34 (79) 10/30/18 Room Air 19:55 Intake and Output 10/30/18 10/30/18 10/31/18 1515:00 23:00 07:00 IntakeIntake Total 400 ml 1300 ml 700 ml BalanceBalance 400 ml 1300 ml 700 ml Results Results 24hrs Laboratory Tests Test 10/30/18 17:45 10/31/18 07:27 Urine Color YELLOW Urine Clarity CLEAR Urine pH 6.0 Urine Specific [place] 1.045 H Urine Ketones NEGATIVE Urine Nitrite NEGATIVE Urine Bilirubin NEGATIVE Urine Urobilinogen NEGATIVE Urine Leukocyte Esterase NEGATIVE Urine Hemoglobin NEGATIVE Urine Glucose 1+ H Urine Total Protein NEGATIVE White Blood Count 15.2 #H Red Blood Count 4.02 L Hemoglobin 8.0 L Hematocrit 28.0 L Mean Corpuscular Volume 69.7 L Mean Corpuscular Hemoglobin 19.9 L Mean Corpuscular Hemoglobin Concent 28.6 L Red Cell Distribution Width 20.7 H Platelet Count 439 H Mean Platelet Volume 8.4 Immature Granulocytes % 0.500 H Neutrophils % 88.8 H Lymphocytes % 4.0 L Monocytes % 6.6 Eosinophils % 0.0 Basophils % 0.1 Nucleated Red Blood Cells % 0.0 Immature Granulocytes # 0.080 H Neutrophils # 13.5 H Lymphocytes # 0.6 L Monocytes # 1.0 H Eosinophils # 0.0 Basophils # 0.0 Nucleated Red Blood Cells # 0.0 Sodium Level 139 Potassium Level 4.3 Chloride Level 104 Carbon Dioxide Level 31 Anion Gap 4 L Blood Urea Nitrogen 10 Creatinine 1.06 Est Glomerular Filtrat Rate mL/min > 60 Glucose Level 106 Calcium Level 8.8 Phosphorus Level 3.7 Magnesium Level 1.9 Medications Medication Current Medications Dextrose/Sodium Chloride 1,000 ml @ 100 mls/hr Q10H IV Last administered on 10/30/18at 20:43; Admin Dose 100 MLS/HR; Start 10/27/18 at 17:53 IV Flush (NS 3 ml) 3 ml PER PROTOCOL IV ; Start 10/27/18 at 18:00 Ondansetron HCl (Zofran Inj) 4 mg Q4 PRN IV NAUSEA/VOMITING Last administered on 10/30/18at 10:55; Admin Dose 4 MG; Start 10/27/18 at 18:00 Acetaminophen (Tylenol Tab) 650 mg Q6H PRN PO .PAIN 1-3 OR TEMP; Start 10/27/18 at 18:00 Acetaminophen (Tylenol Supp) 650 mg Q6H PRN ID .PAIN 1-3 OR TEMP; Start 10/27/18 at 18:00 Acetaminophen/ Hydrocodone Bitart ([place] (5/325)) 1 tab Q6H PRN PO .MOD PAIN 4- 6 Last administered on 10/30/18 02:30; Admin Dose 1 TAB; Start 10/27/18 at 18:00 Morphine Sulfate (morphine) 2 mg Q4H PRN IV .SEVERE PAIN 7-10 Last administered on 10/31/18 03:10; Admin Dose 2 MG; Start 10/27/18 at 18:00 Famotidine (Pepcid Iv) 20 mg Q12 IV Last administered on 10/31/18 08:20; Admin Dose 20 MG; Start 10/27/18 at 21:00 Methylprednisolone Sodium Succinate (Solu-Medrol) 20 mg Q8 IV Last administered on 10/31/18 05:41; Admin Dose 20 MG; Start 10/28/18 at 14:00 Mesalamine (Delzicol Dr) 800 mg TID PO Last administered on 10/31/18 08:19; Admin Dose 800 MG; Start 10/28/18 at 21:00 Ferric Sodium Gluconate Complex 125 mg/Sodium Chloride 100 ml @ 100 mls/hr DAILY@1300 IVPB Last administered on 10/30/18 13:31; Admin Dose 100 MLS/HR; Start 10/30/18 at 13:00; Stop 11/01/18 at 13:59 MADELAINE MCCALL NP Oct 31, 2018 09:40
[2018-10-31] MEDS: DEXTROSE 5%-0.45% NACL 1,000 ML IV SCH ×2 (11:53→21:15)
--- NOTE | 2018-10-31 13:01 | PN ---
Date/Time of Note Date/Time of Note DATE: 10/31/18 TIME: 12:56 Assessment/Plan VTE Prophylaxis Risk score (from Nsg)>0 risk: 1 SCD applied (from Nsg): No SCD contraindicated: other (scds) Pharmacological prophylaxis: other (scds) Lines/Catheters [facility] Saline Lock Urinary Cath still in place: No Assessment/Plan Hospital Course Summary Assessment and Plan: Assessment: UC flare- endoscopies findings suggestive of CD -Elevated CRP/ESR, bloody diarrhea up to 4-5 episode per day Colonoscopy 10/29/2018 Significant to Gareth active colitis from the sigmoid to the proximal ascending colon with rectal sparing. More consistent with Crohn's disease by distribution as well as appearance. Will double biopsies obtained Normal terminal ileum. Biopsies obtained. Moderate size internal hemorrhoids. Epigastric pain EGD 10/29/2018 Mild distal esophagitis. Mild gastritis. Rule out H. pylori infection. Biopsies obtained. Otherwise normal EGD Lower back pain -CT Multiple wedge shaped regions of hypoenhancement and nonenhancement of the left kidney, worse in the lower pole. Findings concerning for left pyelonephritis verses renal infarctions. -Work-up per hospitalist as indicated Chronic marijuana use Plan: PPI BID Continue Delzicol Change Solu-medrol to Prednisone 30 mg po BID Await pathology Low residue diet Follow-up on vascular and nephrology recommendations Patient is in collaboration with Dr. Weeks Subjective: Course reviewed with nursing staff Patient interviewed and examined All labs, imaging and other results reviewed Patient continues to feel better each day no complaints of nausea vomiting or abdominal pain. Patient states he does continue to have a poor appetite. Had x1 bowel movement today noted to be loose no blood noted. Renal infarct noted on CT scan likely secondary to hypercoagulable state from inflammatory bowel disease-vascular to see patient PHYSICAL EXAMINATION: GENERAL: Well developed, well nourished, alert & oriented x 3, in no acute distress SKIN: No lesions HEAD: Normocephalic, atraumatic, no tenderness. EYES: Pupils equal reactive to light and accommodation, no discharge. EARS/NOSE AND THROAT: Ears normal, nose normal. NECK: Supple, no masses CHEST: Inspection within normal limits. CARDIOVASCULAR: Heart: Regular rate and rhythm RESPIRATORY: Lungs clear to auscultation and percussion, no wheezing, no rubs GASTROINTESTINAL AND LIVER: Abdomen: Soft, non tenderness, non-distended, no hernias, no masses, normoactive bowel sounds. Rectal: Deferred. EXTREMITIES: No cyanosis, clubbing or edema. Result Diagram: 10/31/1827 10/31/1827 Results 24hrs Laboratory Tests Test 10/30/18 17:45 10/31/18 07:21 10/31/18 07:27 Urine Color YELLOW Urine Clarity CLEAR Urine pH 6.0 Urine Specific [place] 1.045 H Urine Ketones NEGATIVE Urine Nitrite NEGATIVE Urine Bilirubin NEGATIVE Urine Urobilinogen NEGATIVE Urine Leukocyte Esterase NEGATIVE Urine Hemoglobin NEGATIVE Urine Glucose 1+ H Urine Total Protein NEGATIVE Lactate Dehydrogenase 2165 H C-Reactive Protein 2.5 H White Blood Count 15.2 #H Red Blood Count 4.02 L Hemoglobin 8.0 L Hematocrit 28.0 L Mean Corpuscular Volume 69.7 L Mean Corpuscular Hemoglobin 19.9 L Mean Corpuscular Hemoglobin Concent 28.6 L Red Cell Distribution Width 20.7 H Platelet Count 439 H Mean Platelet Volume 8.4 Immature Granulocytes % 0.500 H Neutrophils % 88.8 H Lymphocytes % 4.0 L Monocytes % 6.6 Eosinophils % 0.0 Basophils % 0.1 Nucleated Red Blood Cells % 0.0 Immature Granulocytes # 0.080 H Neutrophils # 13.5 H Lymphocytes # 0.6 L Monocytes # 1.0 H Eosinophils # 0.0 Basophils # 0.0 Nucleated Red Blood Cells # 0.0 Sodium Level 139 Potassium Level 4.3 Chloride Level 104 Carbon Dioxide Level 31 Anion Gap 4 L Blood Urea Nitrogen 10 Creatinine 1.06 Est Glomerular Filtrat Rate mL/min > 60 Glucose Level 106 Calcium Level 8.8 Phosphorus Level 3.7 Magnesium Level 1.9 Exam/Review of Systems Exam Vitals Vital Signs Date Temp Pulse Resp B/P (MAP) Pulse Ox O2 O2 Flow FiO2 Time Delivery Rate 10/31/18 97.9 65 18 117/60 100 07:34 (79) 10/30/18 Room Air 19:55 Intake and Output 10/30/18 10/30/18 10/31/18 1515:00 23:00 07:00 IntakeIntake Total 400 ml 1300 ml 700 ml BalanceBalance 400 ml 1300 ml 700 ml Results Results 24hrs Laboratory Tests Test 10/30/18 17:45 10/31/18 07:21 10/31/18 07:27 Urine Color YELLOW Urine Clarity CLEAR Urine pH 6.0 Urine Specific [place] 1.045 H Urine Ketones NEGATIVE Urine Nitrite NEGATIVE Urine Bilirubin NEGATIVE Urine Urobilinogen NEGATIVE Urine Leukocyte Esterase NEGATIVE Urine Hemoglobin NEGATIVE Urine Glucose 1+ H Urine Total Protein NEGATIVE Lactate Dehydrogenase 2165 H C-Reactive Protein 2.5 H White Blood Count 15.2 #H Red Blood Count 4.02 L Hemoglobin 8.0 L Hematocrit 28.0 L Mean Corpuscular Volume 69.7 L Mean Corpuscular Hemoglobin 19.9 L Mean Corpuscular Hemoglobin Concent 28.6 L Red Cell Distribution Width 20.7 H Platelet Count 439 H Mean Platelet Volume 8.4 Immature Granulocytes % 0.500 H Neutrophils % 88.8 H Lymphocytes % 4.0 L Monocytes % 6.6 Eosinophils % 0.0 Basophils % 0.1 Nucleated Red Blood Cells % 0.0 Immature Granulocytes # 0.080 H Neutrophils # 13.5 H Lymphocytes # 0.6 L Monocytes # 1.0 H Eosinophils # 0.0 Basophils # 0.0 Nucleated Red Blood Cells # 0.0 Sodium Level 139 Potassium Level 4.3 Chloride Level 104 Carbon Dioxide Level 31 Anion Gap 4 L Blood Urea Nitrogen 10 Creatinine 1.06 Est Glomerular Filtrat Rate mL/min > 60 Glucose Level 106 Calcium Level 8.8 Phosphorus Level 3.7 Magnesium Level 1.9 Medications Medication Current Medications Dextrose/Sodium Chloride 1,000 ml @ 100 mls/hr Q10H IV Last administered on 10/30/18at 20:43; Admin Dose 100 MLS/HR; Start 10/27/18 at 17:53 IV Flush (NS 3 ml) 3 ml PER PROTOCOL IV ; Start 10/27/18 at 18:00 Ondansetron HCl (Zofran Inj) 4 mg Q4 PRN IV NAUSEA/VOMITING Last administered on 10/30/18at 10:55; Admin Dose 4 MG; Start 10/27/18 at 18:00 Acetaminophen (Tylenol Tab) 650 mg Q6H PRN PO .PAIN 1-3 OR TEMP; Start 10/27/18 at 18:00 Acetaminophen (Tylenol Supp) 650 mg Q6H PRN [place] .PAIN 1-3 OR TEMP; Start 10/27/18 at 18:00 Acetaminophen/ Hydrocodone Bitart ([place] (5/325)) 1 tab Q6H PRN PO .MOD PAIN 4- 6 Last administered on 10/30/18 02:30; Admin Dose 1 TAB; Start 10/27/18 at 18:00 Morphine Sulfate (morphine) 2 mg Q4H PRN IV .SEVERE PAIN 7-10 Last administered on 10/31/18 03:10; Admin Dose 2 MG; Start 10/27/18 at 18:00 Famotidine (Pepcid Iv) 20 mg Q12 IV Last administered on 10/31/18 08:20; Admin Dose 20 MG; Start 10/27/18 at 21:00 Methylprednisolone Sodium Succinate (Solu-Medrol) 20 mg Q8 IV Last administered on 10/31/18 05:41; Admin Dose 20 MG; Start 10/28/18 at 14:00 Mesalamine (Delzicol Dr) 800 mg TID PO Last administered on 10/31/18 08:19; Admin Dose 800 MG; Start 10/28/18 at 21:00 Ferric Sodium Gluconate Complex 125 mg/Sodium Chloride 100 ml @ 100 mls/hr DAILY@1300 IVPB Last administered on 10/30/18 13:31; Admin Dose 100 MLS/HR; Start 10/30/18 at 13:00; Stop 11/01/18 at 13:59 OFELIA CUNNINGHAM Oct 31, 2018 13:01
[2018-10-31] MEDS: SOD FERRIC GLUC COMPLX 125 MG in SOD CHLORIDE 0.9% 100 ML IVPB SCH (13:08)
[2018-10-31 15:00] VITALS: BP 114/65; PULSE 57; RESP 18
--- NOTE | 2018-10-31 15:15 | CONS ---
Assessment/Plan Assessment/Plan Assessment/Plan (Daily) 33 yo man with ulcerative colitis and iron deficiency anemia. IV iron has been given and he should begin to make blood with this. There are possible emboli or infarctions of the kidney, so the question of a thrombotic tendency was raised. I will send labs to look for these risk factors but think that treatment of the UC will be the most important issue in helping this young man. Consultation Date/Type/Reason Admit Date/Time Oct 27, 2018 at 14:15 Date of Consultation: Oct 31, 2018 Type of Consult Hematology Reason for Consultation renal infarction Requesting Provider: MADELAINE MCCALL NP Date/Time of Note DATE: 10/31/18 TIME: 14:59 Hx of Present Illness 33 yo man who presented to the hospital with left back pain found to be due to renal infarction. He also had iron deficiency anemia and history of melena. Pathology from colonoscopy showed ulcerative colitis and he also had gastritis. No malignancy was found. He is referred for question of hypercoaguable state. Presently he feels better since getting IV iron. PMH notable for marijuana use, social stresses. There is no history of DT or PE and there is no history of thrombotic events in the family. Past Medical History Medical History: colitis, other (Question history of ulcerative colitis. Anemia) Home Meds Active Scripts Balsalazide Disodium (Balsalazide Disodium) 750 Mg Capsule, 2250 MG PO TID for 30 Days, CAP Prov:ELROY RABAGO 09/30/17 Discontinued Scripts Prednisone* (Prednisone*) 20 Mg Tab, 40 MG PO DAILY for 6 Days, TAB Prov:MIGUEL LARRY MD 01/18/18 Prednisone* (Prednisone*) 20 Mg Tab, 40 MG PO DAILY for 30 Days, TAB Prov:ELROY RABAGO 09/30/17 Medications Current Medications Dextrose/Sodium Chloride 1,000 ml @ 100 mls/hr Q10H IV Last administered on 10/30/18at 20:43; Admin Dose 100 MLS/HR; Start 10/27/18 at 17:53 IV Flush (NS 3 ml) 3 ml PER PROTOCOL IV ; Start 10/27/18 at 18:00 Ondansetron HCl (Zofran Inj) 4 mg Q4 PRN IV NAUSEA/VOMITING Last administered on 10/30/18at 10:55; Admin Dose 4 MG; Start 10/27/18 at 18:00 Acetaminophen (Tylenol Tab) 650 mg Q6H PRN PO .PAIN 1-3 OR TEMP; Start 10/27/18 at 18:00 Acetaminophen (Tylenol Supp) 650 mg Q6H PRN [place] .PAIN 1-3 OR TEMP; Start 10/27/18 at 18:00 Acetaminophen/ Hydrocodone Bitart ([place] (5/325)) 1 tab Q6H PRN PO .MOD PAIN 4- 6 Last administered on 10/30/18at 02:30; Admin Dose 1 TAB; Start 10/27/18 at 18:00 Morphine Sulfate (morphine) 2 mg Q4H PRN IV .SEVERE PAIN 7-10 Last administered on 10/31/18at 03:10; Admin Dose 2 MG; Start 10/27/18 at 18:00 Famotidine (Pepcid Iv) 20 mg Q12 IV Last administered on 10/31/18at 08:20; Admin Dose 20 MG; Start 10/27/18 at 21:00 Methylprednisolone Sodium Succinate (Solu-Medrol) 20 mg Q8 IV Last administered on 10/31/18at 13:08; Admin Dose 20 MG; Start 10/28/18 at 14:00 Mesalamine (Delzicol Dr) 800 mg TID PO Last administered on 10/31/18at 08:19; Admin Dose 800 MG; Start 10/28/18 at 21:00 Ferric Sodium Gluconate Complex 125 mg/Sodium Chloride 100 ml @ 100 mls/hr DAILY@1300 IVPB Last administered on 10/31/18at 13:08; Admin Dose 100 MLS/HR; Start 10/30/18 at 13:00; Stop 11/01/18 at 13:59 Allergies: Coded Allergies: No Known Allergy (Unverified , 10/27/18) Past Surgical History Past Surgical Hx: no surgical history, endoscopy (GI) Social History Alcohol Use: none Smoking Status: Unknown if ever smoked Drug Use: marijuana Exam/Review of Systems Exam Vitals Vital Signs Date Temp Pulse Resp B/P (MAP) Pulse Ox O2 O2 Flow FiO2 Time Delivery Rate 10/31/18 97.9 65 18 117/60 100 07:34 (79) 10/30/18 Room Air 19:55 Intake and Output 10/30/18 10/30/18 10/31/18 1515:00 23:00 07:00 IntakeIntake Total 400 ml 1300 ml 700 ml BalanceBalance 400 ml 1300 ml 700 ml Constitutional: alert, oriented Head: normocephalic Eyes: nl conjunctiva (moderate pallor) ENMT: nl external ears & nose Neck: supple Respiratory: clear to auscultation Cardiovascular: regular rate and rhythm Gastrointestinal: soft, non-tender Skin: other (tattoos) Lymph: nl lymph nodes Results Result Diagram: 10/31/1827 10/31/18726 Results 24hrs Laboratory Tests Test 10/30/18 17:45 10/31/18 07:21 10/31/18 07:27 Urine Color YELLOW Urine Clarity CLEAR Urine pH 6.0 Urine Specific [place] 1.045 H Urine Ketones NEGATIVE Urine Nitrite NEGATIVE Urine Bilirubin NEGATIVE Urine Urobilinogen NEGATIVE Urine Leukocyte Esterase NEGATIVE Urine Hemoglobin NEGATIVE Urine Glucose 1+ H Urine Total Protein NEGATIVE Lactate Dehydrogenase 2165 H C-Reactive Protein 2.5 H White Blood Count 15.2 #H Red Blood Count 4.02 L Hemoglobin 8.0 L Hematocrit 28.0 L Mean Corpuscular Volume 69.7 L Mean Corpuscular Hemoglobin 19.9 L Mean Corpuscular Hemoglobin Concent 28.6 L Red Cell Distribution Width 20.7 H Platelet Count 439 H Mean Platelet Volume 8.4 Immature Granulocytes % 0.500 H Neutrophils % 88.8 H Lymphocytes % 4.0 L Monocytes % 6.6 Eosinophils % 0.0 Basophils % 0.1 Nucleated Red Blood Cells % 0.0 Immature Granulocytes # 0.080 H Neutrophils # 13.5 H Lymphocytes # 0.6 L Monocytes # 1.0 H Eosinophils # 0.0 Basophils # 0.0 Nucleated Red Blood Cells # 0.0 Sodium Level 139 Potassium Level 4.3 Chloride Level 104 Carbon Dioxide Level 31 Anion Gap 4 L Blood Urea Nitrogen 10 Creatinine 1.06 Est Glomerular Filtrat Rate mL/min > 60 Glucose Level 106 Calcium Level 8.8 Phosphorus Level 3.7 Magnesium Level 1.9 Medications Medication Current Medications Dextrose/Sodium Chloride 1,000 ml @ 100 mls/hr Q10H IV Last administered on 10/30/18at 20:43; Admin Dose 100 MLS/HR; Start 10/27/18 at 17:53 IV Flush (NS 3 ml) 3 ml PER PROTOCOL IV ; Start 10/27/18 at 18:00 Ondansetron HCl (Zofran Inj) 4 mg Q4 PRN IV NAUSEA/VOMITING Last administered on 10/30/18 10:55; Admin Dose 4 MG; Start 10/27/18 at 18:00 Acetaminophen (Tylenol Tab) 650 mg Q6H PRN PO .PAIN 1-3 OR TEMP; Start 10/27/18 at 18:00 Acetaminophen (Tylenol Supp) 650 mg Q6H PRN [place] .PAIN 1-3 OR TEMP; Start 10/27/18 at 18:00 Acetaminophen/ Hydrocodone Bitart ([place] (5/325)) 1 tab Q6H PRN PO .MOD PAIN 4- 6 Last administered on 10/30/18 02:30; Admin Dose 1 TAB; Start 10/27/18 at 18:00 Morphine Sulfate (morphine) 2 mg Q4H PRN IV .SEVERE PAIN 7-10 Last administered on 10/31/18 03:10; Admin Dose 2 MG; Start 10/27/18 at 18:00 Famotidine (Pepcid Iv) 20 mg Q12 IV Last administered on 10/31/18 08:20; Admin Dose 20 MG; Start 10/27/18 at 21:00 Methylprednisolone Sodium Succinate (Solu-Medrol) 20 mg Q8 IV Last administered on 10/31/18 13:08; Admin Dose 20 MG; Start 10/28/18 at 14:00 Mesalamine (Delzicol Dr) 800 mg TID PO Last administered on 10/31/18 08:19; Admin Dose 800 MG; Start 10/28/18 at 21:00 Ferric Sodium Gluconate Complex 125 mg/Sodium Chloride 100 ml @ 100 mls/hr DAILY@1300 IVPB Last administered on 10/31/18 13:08; Admin Dose 100 MLS/HR; Start 10/30/18 at 13:00; Stop 11/01/18 at 13:59 NIDIA GAYTAN MD Oct 31, 2018 15:09
[2018-10-31 19:45] VITALS: BP 112/62; PULSE 58; RESP 18
[2018-11-01] MEDS: HYDROCODONE/APAP (5/325) TAB PO PRN (02:12)
[2018-11-01 02:17] VITALS: BP 108/58; PULSE 55; RESP 18
[2018-11-01] MEDS: METHYLPREDNISOLONE 40 MG INJ IV SCH ×2 (05:53→14:44)
[2018-11-01] MEDS: DEXTROSE 5%-0.45% NACL 1,000 ML IV SCH ×2 (05:57→15:55)
[2018-11-01 07:33] VITALS: BP 124/59; PULSE 54; RESP 18
[2018-11-01] MEDS: FAMOTIDINE 20 MG INJ IV SCH ×2 (08:47→20:31)
[2018-11-01] MEDS: MESALAMINE (EC) 400 MG CAP PO SCH ×4 (08:47→20:31)
--- NOTE | 2018-11-01 09:42 | PN ---
Date/Time of Note Date/Time of Note DATE: 11/01/18 TIME: 09:41 Assessment/Plan VTE Prophylaxis Risk score (from Ns)>0 risk: 1 SCD applied (from Ns): Yes Pharmacological prophylaxis: NA/contraindicated Pharm contraindication: bleeding Lines/Catheters [facility] Peripheral IV Urinary Cath still in place: No Assessment/Plan Hospital Course SUBJECTIVE: Denies any significant abdominal pain. Denies any blood in stool. OBJECTIVE: Physical Exam General: Adequately build 33 year-old male lying in bed in no apparent distress. HEENT: Normocephalic, atraumatic. Eyes: Anicteric sclerae, conjunctivae clear. ENT: Nasal septum midline, oral mucosa moist. Neck supple, no JVD noticed. Respiratory: Bilaterally clear breath sounds. No use of accessory muscles of respiration. No adventitious breath sounds. Cardiovascular: S1, S2 heard. No murmurs or gallops. Abdomen: Soft and nondistended. Left upper quadrant tenderness. Bowel sounds positive in all 4 quadrants. Genitourinary: Deferred. Extremities: No cyanosis, no clubbing, no edema. Peripheral pulses palpable. Neurologic: Cranial nerves II through XII grossly intact. The patient is awake, alert, and oriented. Skin: Normal skin turgor. No skin rashes. Labs & Vitals per chart ASSESSMENT & PLAN 33-year-old male with a past medical history of anemia and history of ulcerative colitis. He presented to the emergency room with chief complaint of lower back pain with associated diarrhea and melena. The patient was noticed to have underlying microcytic, hypochromic anemia and was admitted to inpatient setting for further treatment and evaluation. 1. Abdominal pain. Status post esophagogastroduodenoscopy on 10/29/2018 that showed mild distal esophagitis and gastritis. Continue H2 receptor blockers. 2. Possible underlying ulcerative colitis flare. Status post colonoscopy on 10/29/2018 that showed significantly active colitis from the sigmoid to the proximal ascending colon with rectal sparing, more consistent with Crohn's disease. Pathology report suggesting ulcerative colitis. Continue mesalamine. Continue IV Solu-Medrol. Being followed by gastroenterology. 3. 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 Incidental finding on 10/30/2018. Status post urology evaluation who recommended vascular surgery and hematology evaluation. Hematology ordered hypercoagulable work-up. 4. Possible underlying hypercoagulable state secondary to Crohn's disease. Hematology consult has been obtained. Pending hypercoagulable work-up. 5. Microcytic, hypochromic anemia. Continue to replace blood products as necessary. 6. Chronic marijuana use. Cessation advised. 7. Iron deficiency. Continue iron supplements. 8. Fluids, electrolytes, and nutrition. Soft diet. 9. DVT prophylaxis Bilateral SCDs. 10. Plan. Continue mesalamine and IV Solu-Medrol. Replace blood products as needed. Await vascular surgery input. Await hypercoagulable work-up. Disposition: Discharge planning is to discharge the patient home once clinically stable. The patient was seen in collaboration with Dr. Allison. Result Diagram: 11/01/18 0654 11/01/18 0654 Results 24hrs Laboratory Tests Test 11/01/18 06:54 White Blood Count 13.7 H Red Blood Count 4.52 L Hemoglobin 8.9 L Hematocrit 31.5 L Mean Corpuscular Volume 69.7 L Mean Corpuscular Hemoglobin 19.7 L Mean Corpuscular Hemoglobin Concent 28.3 L Red Cell Distribution Width 20.7 H Platelet Count 484 H Mean Platelet Volume 8.4 Immature Granulocytes % 0.600 H Neutrophils % 81.4 H Lymphocytes % 8.8 L Monocytes % 9.1 Eosinophils % 0.0 Basophils % 0.1 Nucleated Red Blood Cells % 0.1 H Immature Granulocytes # 0.080 H Neutrophils # 11.2 H Lymphocytes # 1.2 Monocytes # 1.3 H Eosinophils # 0.0 Basophils # 0.0 Nucleated Red Blood Cells # 0.0 Absolute Reticulocyte Count 0.107 Percent Reticulocyte Count 2.4 H Sodium Level 139 Potassium Level 4.2 Chloride Level 103 Carbon Dioxide Level 31 Anion Gap 5 Blood Urea Nitrogen 10 Creatinine 1.06 Est Glomerular Filtrat Rate mL/min > 60 Glucose Level 114 Calcium Level 9.1 Phosphorus Level 4.1 Magnesium Level 2.1 C-Reactive Protein 5.8 H Exam/Review of Systems Exam Vitals Vital Signs Date Temp Pulse Resp B/P (MAP) Pulse Ox O2 O2 Flow FiO2 Time Delivery Rate 11/01/18 98.2 54 18 124/59 97 Room Air 07:33 (80) Intake and Output 10/31/18 10/31/18 11/01/18 1515:00 23:00 07:00 IntakeIntake Total 800 ml 900 ml 700 ml BalanceBalance 800 ml 900 ml 700 ml Results Results 24hrs Laboratory Tests Test 11/01/18 06:54 White Blood Count 13.7 H Red Blood Count 4.52 L Hemoglobin 8.9 L Hematocrit 31.5 L Mean Corpuscular Volume 69.7 L Mean Corpuscular Hemoglobin 19.7 L Mean Corpuscular Hemoglobin Concent 28.3 L Red Cell Distribution Width 20.7 H Platelet Count 484 H Mean Platelet Volume 8.4 Immature Granulocytes % 0.600 H Neutrophils % 81.4 H Lymphocytes % 8.8 L Monocytes % 9.1 Eosinophils % 0.0 Basophils % 0.1 Nucleated Red Blood Cells % 0.1 H Immature Granulocytes # 0.080 H Neutrophils # 11.2 H Lymphocytes # 1.2 Monocytes # 1.3 H Eosinophils # 0.0 Basophils # 0.0 Nucleated Red Blood Cells # 0.0 Absolute Reticulocyte Count 0.107 Percent Reticulocyte Count 2.4 H Sodium Level 139 Potassium Level 4.2 Chloride Level 103 Carbon Dioxide Level 31 Anion Gap 5 Blood Urea Nitrogen 10 Creatinine 1.06 Est Glomerular Filtrat Rate mL/min > 60 Glucose Level 114 Calcium Level 9.1 Phosphorus Level 4.1 Magnesium Level 2.1 C-Reactive Protein 5.8 H Medications Medication Current Medications Dextrose/Sodium Chloride 1,000 ml @ 100 mls/hr Q10H IV Last administered on 11/01/18at 05:57; Admin Dose 100 MLS/HR; Start 10/27/18 at 17:53 IV Flush (NS 3 ml) 3 ml PER PROTOCOL IV Last administered on 11/01/18at 08:47; Admin Dose 3 ML; Start 10/27/18 at 18:00 Ondansetron HCl (Zofran Inj) 4 mg Q4 PRN IV NAUSEA/VOMITING Last administered on 10/30/18at 10:55; Admin Dose 4 MG; Start 10/27/18 at 18:00 Acetaminophen (Tylenol Tab) 650 mg Q6H PRN PO .PAIN 1-3 OR TEMP; Start 10/27/18 at 18:00 Acetaminophen (Tylenol Supp) 650 mg Q6H PRN [place] .PAIN 1-3 OR TEMP; Start 10/27/18 at 18:00 Acetaminophen/ Hydrocodone Bitart ([place] (5/325)) 1 tab Q6H PRN PO .MOD PAIN 4- 6 Last administered on 11/01/18 02:12; Admin Dose 1 TAB; Start 10/27/18 at 18:00 Morphine Sulfate (morphine) 2 mg Q4H PRN IV .SEVERE PAIN 7-10 Last administered on 10/31/18 03:10; Admin Dose 2 MG; Start 10/27/18 at 18:00 Famotidine (Pepcid Iv) 20 mg Q12 IV Last administered on 11/01/18 08:47; Admin Dose 20 MG; Start 10/27/18 at 21:00 Methylprednisolone Sodium Succinate (Solu-Medrol) 20 mg Q8 IV Last administered on 11/01/18 05:53; Admin Dose 20 MG; Start 10/28/18 at 14:00 Mesalamine (Delzicol Dr) 800 mg TID PO Last administered on 10/31/18 21:16; Admin Dose 800 MG; Start 10/28/18 at 21:00 Ferric Sodium Gluconate Complex 125 mg/Sodium Chloride 100 ml @ 100 mls/hr DAILY@1300 IVPB Last administered on 10/31/18 13:08; Admin Dose 100 MLS/HR; Start 10/30/18 at 13:00; Stop 11/01/18 at 13:59 MADELAINE MCCALL NP Nov 01, 2018 09:42
--- NOTE | 2018-11-01 10:44 | PN ---
Date/Time of Note Date/Time of Note DATE: 11/01/18 TIME: 10:40 Assessment/Plan VTE Prophylaxis Risk score (from Ns)>0 risk: 1 SCD applied (from [facility] [place]): No SCD contraindicated: low risk/ambulating Pharmacological prophylaxis: NA/contraindicated Pharm contraindication: bleeding Lines/Catheters IV Catheter Type (from [facility]): Peripheral IV Urinary Cath still in place: No Assessment/Plan Assessment/Plan Pt is feeling better and is not bleeding actively now. Blood drawn this morning for the hypercoaguability evaluation. I would continue oral iron after discharge from [facility]. I asked him to f/u in my office regarding the pending blood results. He will primarily need GI f/u for the UC. Result Diagram: 11/01/1854 11/01/1854 Results 24hrs Laboratory Tests Test 11/01/18 06:54 White Blood Count 13.7 H Red Blood Count 4.52 L Hemoglobin 8.9 L Hematocrit 31.5 L Mean Corpuscular Volume 69.7 L Mean Corpuscular Hemoglobin 19.7 L Mean Corpuscular Hemoglobin Concent 28.3 L Red Cell Distribution Width 20.7 H Platelet Count 484 H Mean Platelet Volume 8.4 Immature Granulocytes % 0.600 H Neutrophils % 81.4 H Lymphocytes % 8.8 L Monocytes % 9.1 Eosinophils % 0.0 Basophils % 0.1 Nucleated Red Blood Cells % 0.1 H Immature Granulocytes # 0.080 H Neutrophils # 11.2 H Lymphocytes # 1.2 Monocytes # 1.3 H Eosinophils # 0.0 Basophils # 0.0 Nucleated Red Blood Cells # 0.0 Absolute Reticulocyte Count 0.107 Percent Reticulocyte Count 2.4 H Sodium Level 139 Potassium Level 4.2 Chloride Level 103 Carbon Dioxide Level 31 Anion Gap 5 Blood Urea Nitrogen 10 Creatinine 1.06 Est Glomerular Filtrat Rate mL/min > 60 Glucose Level 114 Calcium Level 9.1 Phosphorus Level 4.1 Magnesium Level 2.1 C-Reactive Protein 5.8 H Subjective 24 Hr Interval Summary Free Text/Dictation Pt is feeling better and is up in chair. Exam/Review of Systems Exam Vitals Vital Signs Date Temp Pulse Resp B/P (MAP) Pulse Ox O2 O2 Flow FiO2 Time Delivery Rate 11/01/18 98.2 54 18 124/59 97 Room Air 07:33 (80) Intake and Output 10/31/18 10/31/18 11/01/18 1515:00 23:00 07:00 IntakeIntake Total 800 ml 900 ml 700 ml BalanceBalance 800 ml 900 ml 700 ml Constitutional: alert, oriented Head: normocephalic Eyes: other (moderate pallor) Neck: supple Respiratory: clear to auscultation Cardiovascular: regular rate and rhythm Gastrointestinal: soft, non-tender Results Results 24hrs Laboratory Tests Test 11/01/18 06:54 White Blood Count 13.7 H Red Blood Count 4.52 L Hemoglobin 8.9 L Hematocrit 31.5 L Mean Corpuscular Volume 69.7 L Mean Corpuscular Hemoglobin 19.7 L Mean Corpuscular Hemoglobin Concent 28.3 L Red Cell Distribution Width 20.7 H Platelet Count 484 H Mean Platelet Volume 8.4 Immature Granulocytes % 0.600 H Neutrophils % 81.4 H Lymphocytes % 8.8 L Monocytes % 9.1 Eosinophils % 0.0 Basophils % 0.1 Nucleated Red Blood Cells % 0.1 H Immature Granulocytes # 0.080 H Neutrophils # 11.2 H Lymphocytes # 1.2 Monocytes # 1.3 H Eosinophils # 0.0 Basophils # 0.0 Nucleated Red Blood Cells # 0.0 Absolute Reticulocyte Count 0.107 Percent Reticulocyte Count 2.4 H Sodium Level 139 Potassium Level 4.2 Chloride Level 103 Carbon Dioxide Level 31 Anion Gap 5 Blood Urea Nitrogen 10 Creatinine 1.06 Est Glomerular Filtrat Rate mL/min > 60 Glucose Level 114 Calcium Level 9.1 Phosphorus Level 4.1 Magnesium Level 2.1 C-Reactive Protein 5.8 H Medications Medication Current Medications Dextrose/Sodium Chloride 1,000 ml @ 100 mls/hr Q10H IV Last administered on 11/01/18at 05:57; Admin Dose 100 MLS/HR; Start 10/27/18 at 17:53 IV Flush (NS 3 ml) 3 ml PER PROTOCOL IV Last administered on 11/01/18at 08:47; Admin Dose 3 ML; Start 10/27/18 at 18:00 Ondansetron HCl (Zofran Inj) 4 mg Q4 PRN IV NAUSEA/VOMITING Last administered on 10/30/18at 10:55; Admin Dose 4 MG; Start 10/27/18 at 18:00 Acetaminophen (Tylenol Tab) 650 mg Q6H PRN PO .PAIN 1-3 OR TEMP; Start 10/27/18 at 18:00 Acetaminophen (Tylenol Supp) 650 mg Q6H PRN [place] .PAIN 1-3 OR TEMP; Start 10/27/18 at 18:00 Acetaminophen/ Hydrocodone Bitart ([place] (5/325)) 1 tab Q6H PRN PO .MOD PAIN 4- 6 Last administered on 11/01/18 02:12; Admin Dose 1 TAB; Start 10/27/18 at 18:00 Morphine Sulfate (morphine) 2 mg Q4H PRN IV .SEVERE PAIN 7-10 Last administered on 10/31/18 03:10; Admin Dose 2 MG; Start 10/27/18 at 18:00 Famotidine (Pepcid Iv) 20 mg Q12 IV Last administered on 11/01/18 08:47; Admin Dose 20 MG; Start 10/27/18 at 21:00 Methylprednisolone Sodium Succinate (Solu-Medrol) 20 mg Q8 IV Last administered on 11/01/18 05:53; Admin Dose 20 MG; Start 10/28/18 at 14:00 Mesalamine (Delzicol Dr) 800 mg TID PO Last administered on 10/31/18 21:16; Admin Dose 800 MG; Start 10/28/18 at 21:00 Ferric Sodium Gluconate Complex 125 mg/Sodium Chloride 100 ml @ 100 mls/hr DAILY@1300 IVPB Last administered on 10/31/18 13:08; Admin Dose 100 MLS/HR; Start 10/30/18 at 13:00; Stop 11/01/18 at 13:59 NIDIA GAYTAN MD Nov 01, 2018 10:44
[2018-11-01] MEDS: SOD FERRIC GLUC COMPLX 125 MG in SOD CHLORIDE 0.9% 100 ML IVPB SCH (12:32)
[2018-11-01 13:58] VITALS: BP 122/59; PULSE 62; RESP 18
--- NOTE | 2018-11-01 15:17 | PN ---
Date/Time of Note Date/Time of Note DATE: 11/01/18 TIME: 14:54 Assessment/Plan VTE Prophylaxis Risk score (from Ns)>0 risk: 1 SCD applied (from Ns): No SCD contraindicated: low risk/ambulating Pharmacological prophylaxis: NA/contraindicated Pharm contraindication: bleeding Lines/Catheters IV C[facility]ter Type (from [email or web address] Peripheral IV Urinary Cath still in place: No Assessment/Plan Assessment/Plan Assessment: UC flare- endoscopies findings suggestive of CD -Elevated CRP/ESR, bloody diarrhea up to 4-5 episode per day Colonoscopy 10/29/2018 Significantly active colitis from the sigmoid to the proximal ascending colon with rectal sparing. More consistent with Crohn's disease by distribution as well as appearance. Biopsies show chronic inflammation Normal terminal ileum. Biopsies obtained. Moderate size internal hemorrhoids. Epigastric pain EGD 10/29/2018 Mild distal esophagitis. Mild gastritis. Rule out H. pylori infection. Biopsies are negative for H. pylori Otherwise normal EGD Lower back pain -CT Multiple wedge shaped regions of hypoenhancement and nonenhancement of the left kidney, worse in the lower pole. Findings concerning for left pyelonephritis verses renal infarctions. -Work-up per hospitalist as indicated Chronic marijuana use Plan: PPI BID Continue Delzicol Change Solu-medrol to Prednisone 30 mg po BID Humira work-up -amylase, lipase, hepatitis serology, autoimmune panel, QuantiFERON gold Low residue diet Follow-up on vascular and nephrology recommendations Patient is in collaboration with Dr. Weeks Subjective: Course reviewed with nursing staff Patient interviewed and examined All labs, imaging and other results reviewed Patient states he is feeling better. Tolerating soft diet well. Patient had one bowel movement today. Denies diarrhea or hematochezia. We will change Solu-Medrol to p.o. prednisone. Discussed outpatient follow-up and work-up for Humira. Will order work-up as an inpatient to expedite initiation of treatment. Results of biopsies reviewed. Renal infarct noted on CT scan likely secondary to hypercoagulable state from inflammatory bowel disease PHYSICAL EXAMINATION: GENERAL: Well developed, well nourished, alert & oriented x 3, in no acute distress SKIN: No lesions HEAD: Normocephalic, atraumatic, no tenderness. EYES: Pupils equal reactive to light and accommodation, no discharge. EARS/NOSE AND THROAT: Ears normal, nose normal. NECK: Supple, no masses CHEST: Inspection within normal limits. CARDIOVASCULAR: Heart: Regular rate and rhythm RESPIRATORY: Lungs clear to auscultation and percussion, no wheezing, no rubs GASTROINTESTINAL AND LIVER: Abdomen: Soft, non tenderness, non-distended, no hernias, no masses, normoactive bowel sounds. Rectal: Deferred. EXTREMITIES: No cyanosis, clubbing or edema. Result Diagram: 11/01/18 0654 11/01/18 0654 Results 24hrs Laboratory Tests Test 11/01/18 06:54 White Blood Count 13.7 H Red Blood Count 4.52 L Hemoglobin 8.9 L Hematocrit 31.5 L Mean Corpuscular Volume 69.7 L Mean Corpuscular Hemoglobin 19.7 L Mean Corpuscular Hemoglobin Concent 28.3 L Red Cell Distribution Width 20.7 H Platelet Count 484 H Mean Platelet Volume 8.4 Immature Granulocytes % 0.600 H Neutrophils % 81.4 H Lymphocytes % 8.8 L Monocytes % 9.1 Eosinophils % 0.0 Basophils % 0.1 Nucleated Red Blood Cells % 0.1 H Immature Granulocytes # 0.080 H Neutrophils # 11.2 H Lymphocytes # 1.2 Monocytes # 1.3 H Eosinophils # 0.0 Basophils # 0.0 Nucleated Red Blood Cells # 0.0 Absolute Reticulocyte Count 0.107 Percent Reticulocyte Count 2.4 H Sodium Level 139 Potassium Level 4.2 Chloride Level 103 Carbon Dioxide Level 31 Anion Gap 5 Blood Urea Nitrogen 10 Creatinine 1.06 Est Glomerular Filtrat Rate mL/min > 60 Glucose Level 114 Calcium Level 9.1 Phosphorus Level 4.1 Magnesium Level 2.1 C-Reactive Protein 5.8 H CC: FREDDIE WEEKS MD ; Exam/Review of Systems Exam Vitals Vital Signs Date Temp Pulse Resp B/P (MAP) Pulse Ox O2 O2 Flow FiO2 Time Delivery Rate 11/01/18 98.0 62 18 122/59 97 Room Air 13:58 (80) Intake and Output 10/31/18 10/31/18 11/01/18 1515:00 23:00 07:00 IntakeIntake Total 800 ml 900 ml 700 ml BalanceBalance 800 ml 900 ml 700 ml Results Results 24hrs Laboratory Tests Test 11/01/18 06:54 White Blood Count 13.7 H Red Blood Count 4.52 L Hemoglobin 8.9 L Hematocrit 31.5 L Mean Corpuscular Volume 69.7 L Mean Corpuscular Hemoglobin 19.7 L Mean Corpuscular Hemoglobin Concent 28.3 L Red Cell Distribution Width 20.7 H Platelet Count 484 H Mean Platelet Volume 8.4 Immature Granulocytes % 0.600 H Neutrophils % 81.4 H Lymphocytes % 8.8 L Monocytes % 9.1 Eosinophils % 0.0 Basophils % 0.1 Nucleated Red Blood Cells % 0.1 H Immature Granulocytes # 0.080 H Neutrophils # 11.2 H Lymphocytes # 1.2 Monocytes # 1.3 H Eosinophils # 0.0 Basophils # 0.0 Nucleated Red Blood Cells # 0.0 Absolute Reticulocyte Count 0.107 Percent Reticulocyte Count 2.4 H Sodium Level 139 Potassium Level 4.2 Chloride Level 103 Carbon Dioxide Level 31 Anion Gap 5 Blood Urea Nitrogen 10 Creatinine 1.06 Est Glomerular Filtrat Rate mL/min > 60 Glucose Level 114 Calcium Level 9.1 Phosphorus Level 4.1 Magnesium Level 2.1 C-Reactive Protein 5.8 H Medications Medication Current Medications Dextrose/Sodium Chloride 1,000 ml @ 100 mls/hr Q10H IV Last administered on 11/01/18at 05:57; Admin Dose 100 MLS/HR; Start 10/27/18 at 17:53 IV Flush (NS 3 ml) 3 ml PER PROTOCOL IV Last administered on 11/01/18at 08:47; Admin Dose 3 ML; Start 10/27/18 at 18:00 Ondansetron HCl (Zofran Inj) 4 mg Q4 PRN IV NAUSEA/VOMITING Last administered on 10/30/18at 10:55; Admin Dose 4 MG; Start 10/27/18 at 18:00 Acetaminophen (Tylenol Tab) 650 mg Q6H PRN PO .PAIN 1-3 OR TEMP; Start 10/27/18 at 18:00 Acetaminophen (Tylenol Supp) [address] .PAIN 1-3 OR TEMP; Start 10/27/18 at 18:00 Acetaminophen/ Hydrocodone Bitart ([place] (5/325)) 1 tab Q6H PRN PO .MOD PAIN 4- 6 Last administered on 11/01/18at 02:12; Admin Dose 1 TAB; Start 10/27/18 at 18:00 Morphine Sulfate (morphine) 2 mg Q4H PRN IV .SEVERE PAIN 7-10 Last administered on 10/31/18 03:10; Admin Dose 2 MG; Start 10/27/18 at 18:00 Famotidine (Pepcid Iv) 20 mg Q12 IV Last administered on 11/01/18 08:47; Admin Dose 20 MG; Start 10/27/18 at 21:00 Methylprednisolone Sodium Succinate (Solu-Medrol) 20 mg Q8 IV Last administered on 11/01/18 14:44; Admin Dose 20 MG; Start 10/28/18 at 14:00 Mesalamine (Delzicol Dr) 800 mg TID PO Last administered on 10/31/18 21:16; Admin Dose 800 MG; Start 10/28/18 at 21:00 TEMI REYES NP Nov 01, 2018 15:04
[2018-11-01 19:56] VITALS: BP 126/69; PULSE 74; RESP 18
--- NOTE | 2018-11-01 19:59 | CONS ---
Consult Date/Type/Reason Admit Date/Time Oct 27, 2018 at 14:15 Initial Consult Date 10/30/18 Type of Consultation: Urology Reason for Consultation Infarct of the lower moiety of the left kidney Requesting Provider: MADELAINE MCCALL NP Date/Time of Note DATE: 11/01/18 TIME: 19:56 Subjective Patient denies any pain and states that he is feeling better Objective Vitals Vital Signs Date Temp Pulse Resp B/P (MAP) Pulse Ox O2 O2 Flow FiO2 Time Delivery Rate 11/01/18 98.0 62 18 122/59 97 Room Air 13:58 (80) Intake and Output 10/31/18 10/31/18 11/01/18 1515:00 23:00 07:00 IntakeIntake Total 800 ml 900 ml 700 ml BalanceBalance 800 ml 900 ml 700 ml Exam Voiding well and the urine is clear. Results/Medications Result Diagram: 11/01/18 0654 11/01/18 0654 Results 24 hrs Laboratory Tests Test 11/01/18 06:54 White Blood Count 13.7 H Red Blood Count 4.52 L Hemoglobin 8.9 L Hematocrit 31.5 L Mean Corpuscular Volume 69.7 L Mean Corpuscular Hemoglobin 19.7 L Mean Corpuscular Hemoglobin Concent 28.3 L Red Cell Distribution Width 20.7 H Platelet Count 484 H Mean Platelet Volume 8.4 Immature Granulocytes % 0.600 H Neutrophils % 81.4 H Lymphocytes % 8.8 L Monocytes % 9.1 Eosinophils % 0.0 Basophils % 0.1 Nucleated Red Blood Cells % 0.1 H Immature Granulocytes # 0.080 H Neutrophils # 11.2 H Lymphocytes # 1.2 Monocytes # 1.3 H Eosinophils # 0.0 Basophils # 0.0 Nucleated Red Blood Cells # 0.0 Absolute Reticulocyte Count 0.107 Percent Reticulocyte Count 2.4 H Sodium Level 139 Potassium Level 4.2 Chloride Level 103 Carbon Dioxide Level 31 Anion Gap 5 Blood Urea Nitrogen 10 Creatinine 1.06 Est Glomerular Filtrat Rate mL/min > 60 Glucose Level 114 Calcium Level 9.1 Phosphorus Level 4.1 Magnesium Level 2.1 C-Reactive Protein 5.8 H Home Meds Active Scripts Balsalazide Disodium (Balsalazide Disodium) 750 Mg Capsule, 2250 MG PO TID for 30 Days, CAP Prov:ELROY RABAGO 09/30/17 Discontinued Scripts Prednisone* (Prednisone*) 20 Mg Tab, 40 MG PO DAILY for 6 Days, TAB Prov:MIGUEL LARRY MD 01/18/18 Prednisone* (Prednisone*) 20 Mg Tab, 40 MG PO DAILY for 30 Days, TAB Prov:ELROY RABAGO 09/30/17 Medications Current Medications Dextrose/Sodium Chloride 1,000 ml @ 100 mls/hr Q10H IV Last administered on 11/01/18at 15:55; Admin Dose 100 MLS/HR; Start 10/27/18 at 17:53 IV Flush (NS 3 ml) 3 ml PER PROTOCOL IV Last administered on 11/01/18 08:47; Admin Dose 3 ML; Start 10/27/18 at 18:00 Ondansetron HCl (Zofran Inj) 4 mg Q4 PRN IV NAUSEA/VOMITING Last administered on 10/30/18at 10:55; Admin Dose 4 MG; Start 10/27/18 at 18:00 Acetaminophen (Tylenol Tab) 650 mg Q6H PRN PO .PAIN 1-3 OR TEMP; Start 10/27/18 at 18:00 Acetaminophen (Tylenol Supp) 650 mg Q6H PRN [place] .PAIN 1-3 OR TEMP; Start 10/27/18 at 18:00 Acetaminophen/ Hydrocodone Bitart ([place] (5/325)) 1 tab Q6H PRN PO .MOD PAIN 4- 6 Last administered on 11/01/18at 02:12; Admin Dose 1 TAB; Start 10/27/18 at 18:00 Morphine Sulfate (morphine) 2 mg Q4H PRN IV .SEVERE PAIN 7-10 Last administered on 10/31/18at 03:10; Admin Dose 2 MG; Start 10/27/18 at 18:00 Famotidine (Pepcid Iv) 20 mg Q12 IV Last administered on 11/01/18 08:47; Admin Dose 20 MG; Start 10/27/18 at 21:00 Mesalamine (Delzicol Dr) 800 mg TID PO Last administered on 10/31/18 21:16; Admin Dose 800 MG; Start 10/28/18 at 21:00 Prednisone (Prednisone) 30 mg BID PO ; Start 11/01/18 at 21:00 Assessment/Plan Hospital Course (Demo Recall) Patient is a 33-year-old male who was admitted to the hospital because of back pain more on the left side than the right side. He is known to have a history of ulcerative colitis. He was also found to be anemic. He underwent CT scan of the abdomen and pelvis today and that showed : Multiple wedge shaped regions of hypoenhancement and nonenhancement of the left kidney, worse in the lower pole. Findings concerning for left pyelonephritis verses renal infarctions, although no renal vascular abnormality is seen on this limited portal venous phase of contrast. Correlate with clinical history and urinalysis. Mild bowel wall thickening and loss of haustral features of the transverse colon and descending colon. Findings may be seen with inflammatory bowel disease. Limited evaluation of the small bowel due to poor distension. Small bowel appears unremarkable. Mild degenerative changes and sclerosis of the sacroiliac joints with mild ankylosis on the right. Correlate for sacroiliitis. The patient denies any history of fall or trauma. He denies any urinary tract infection. No heart disease or cardiac arrhythmias. No peripheral vascular disease. Urine culture did not show any growth. Patient is comfortable, has no pain and is voiding well. Hematology consultation noted. AMERICO ZUNIGA MD Nov 01, 2018 19:59
[2018-11-01] MEDS: predniSONE 10 MG TAB PO SCH (20:31)
[2018-11-02 01:44] VITALS: BP 120/64; PULSE 70; RESP 18
--- NOTE | 2018-11-02 01:51 | CONS ---
DATE OF ADMISSION: 10/27/2018 DATE OF CONSULTATION: 11/01/2018 VASCULAR CONSULTATION REFERRING PHYSICIAN: Judah Cross MD. REASON FOR CONSULTATION: Renal infarct. HISTORY OF PRESENT ILLNESS: This is a 33-year-old gentleman with ulcerative colitis, but is otherwise healthy, has no history of any peripheral vascular disease, coronary artery disease or deep vein thrombosis. He was admitted with basically back pain and it was about a week ago. It is now resolved, but he had a CT of the abdomen that showed multiple wedge shaped infarcts in the left kidney. It is not clear if it is infectious or thrombotic or embolic. He does not have any evidence of any thrombosis or emboli to any other vascular beds and the right kidney is fine. His kidney function has been normal. His white count was going up, but has actually started to come down now. He had a colonoscopy a few days ago because of anemia and chronic ulcerative colitis. I was asked to evaluate him from a vascular standpoint. PAST MEDICAL HISTORY: Significant for ulcerative colitis. No history of DVT, no history of hypercoagulable disorder. MEDICATIONS: Currently consist of: 1. Iron. 2. Delzicol. 3. Solu-Medrol. 4. Pepcid. 5. Zofran. 6. Tylenol. 7. Morphine. ALLERGIES: NO KNOWN DRUG ALLERGIES. SOCIAL HISTORY: He smokes marijuana occasionally. He does not drink and he does not smoke cigarettes. ALLERGIES: NO KNOWN DRUG ALLERGIES. FAMILY HISTORY: Noncontributory. There is no history of hypercoagulable disorders. REVIEW OF SYSTEMS: He currently has no complaints currently. He does have some blood in the stools intermittently and chronic anemia, but he has no chest pain, no shortness of breath. His back pain and abdominal pain have gone. PHYSICAL EXAMINATION GENERAL: with her young gentleman. He is in no acute distress. VITAL SIGNS: He has been afebrile. His blood pressure is 124/59, heart rate 54, respiratory rate is 18, 97% sat on room air. NECK: He has 2+ carotid, radial and brachial pulses bilaterally. LUNGS: Clear. HEART: Regular rate and rhythm. ABDOMEN: Soft, nontender, nondistended. BACK: No back tenderness. EXTREMITIES: He has 3+ femoral, popliteal, DP and PT pulses bilaterally. There is no edema in the legs. I reviewed his CT that does show multiple infarcts in the left kidney of unclear etiology. White count is coming down. Platelet count is normal. Creatinine is normal. He was seen by hematology and he has had a bunch of hypercoagulable studies that are pending. IMPRESSION: Left renal infarct. It is a large amount of the kidney that has been infarcted. It is of unclear etiology. He does not have any evidence of infarct or emboli to any other vascular bed which is unusual if it was embolic and it may be an infectious etiology. I honestly have no way to know. I would probably err on the side of caution and keep him anticoagulated unless he has trouble with GI bleeding from his ulcerative colitis. We will see what the hematology studies show, but there is no intervention that is going to salvage the infarcted kidney. Might consider renal biopsy. I assume he would get a nephrology consult as well and see if they have any thoughts on what this might be. I am not sure what has caused this and it is possible it is embolic, but it would be very unusual. I am available if there are any further issues. Dictated By: MENDY GONZALEZ/MAURY Conf#: [id number] DID#: [id number] CC: JUDAH CROSS MD;*End* MTDD
[2018-11-02] MEDS: DEXTROSE 5%-0.45% NACL 1,000 ML IV SCH (02:42)
--- NOTE | 2018-11-02 07:13 | CONS ---
Consult Date/Type/Reason Admit Date/Time Oct 27, 2018 at 14:15 Initial Consult Date 10/31/18 Type of Consultation: Urology Requesting Provider: MADELAINE MCCALL NP Date/Time of Note DATE: 11/02/18 TIME: 07:11 Subjective No new issues. Pt would like to go home. Denies abdominal cramping, bloody bowel movements, fevers, body aches. Denies lightheadedness, nausea. Objective Vitals Vital Signs Date Temp Pulse Resp B/P (MAP) Pulse Ox O2 O2 Flow FiO2 Time Delivery Rate 11/02/18 98.0 70 18 120/64 100 01:44 (82) 11/01/18 Room Air 13:58 Intake and Output 11/01/18 11/01/18 11/02/18 1515:00 23:00 07:00 IntakeIntake Total 500 ml 400 ml 1400 ml BalanceBalance 500 ml 400 ml 1400 ml Exam Thin male OP clear RRR no m/g/r CTA B Soft NT ND +BS No c/c/e Results/Medications Result Diagram: 11/01/18 0654 11/01/18 0654 Home Meds Active Scripts Balsalazide Disodium (Balsalazide Disodium) 750 Mg Capsule, 2250 MG PO TID for 30 Days, CAP Prov:ELROY RABAGO 09/30/17 Discontinued Scripts Prednisone* (Prednisone*) 20 Mg Tab, 40 MG PO DAILY for 6 Days, TAB Prov:MIGUEL LARRY MD 01/18/18 Prednisone* (Prednisone*) 20 Mg Tab, 40 MG PO DAILY for 30 Days, TAB Prov:ELROY RABAGO 09/30/17 Medications Current Medications Dextrose/Sodium Chloride 1,000 ml @ 100 mls/hr Q10H IV Last administered on 11/02/18at 02:42; Admin Dose 100 MLS/HR; Start 10/27/18 at 17:53 IV Flush (NS 3 ml) 3 ml PER PROTOCOL IV Last administered on 11/01/18at 08:47; Admin Dose 3 ML; Start 10/27/18 at 18:00 Ondansetron HCl (Zofran Inj) 4 mg Q4 PRN IV NAUSEA/VOMITING Last administered on 10/30/18at 10:55; Admin Dose 4 MG; Start 10/27/18 at 18:00 Acetaminophen (Tylenol Tab) 650 mg Q6H PRN PO .PAIN 1-3 OR TEMP; Start 10/27/18 at 18:00 Acetaminophen (Tylenol Supp) 650 mg Q6H PRN [place] .PAIN 1-3 OR TEMP; Start 10/27/18 at 18:00 Acetaminophen/ Hydrocodone Bitart ([place] (5/325)) 1 tab Q6H PRN PO .MOD PAIN 4- 6 Last administered on 11/01/18 02:12; Admin Dose 1 TAB; Start 10/27/18 at 18:00 Morphine Sulfate (morphine) 2 mg Q4H PRN IV .SEVERE PAIN 7-10 Last administered on 10/31/18 03:10; Admin Dose 2 MG; Start 10/27/18 at 18:00 Famotidine (Pepcid Iv) 20 mg Q12 IV Last administered on 11/01/18 20:31; Admin Dose 20 MG; Start 10/27/18 at 21:00 Mesalamine (Delzicol Dr) 800 mg TID PO Last administered on 11/01/18 20:31; Admin Dose 800 MG; Start 10/28/18 at 21:00 Prednisone (Prednisone) 30 mg BID PO Last administered on 11/01/18 20:31; Admin Dose 30 MG; Start 11/01/18 at 21:00 Assessment/Plan Assessment/Plan (Daily) Pt with h/o UC and anemia. Hb stable. Pt on steroids but hopefully will start a biologic shortly. If discharged, please have him call Dr. Benavides's office to arrange outpt IV iron. Thank you! Loyd Sim MD Heme/Onc LOYD SIM Nov 02, 2018 07:13
[2018-11-02 07:48] VITALS: BP 106/55; PULSE 53; RESP 18
[2018-11-02] MEDS: FAMOTIDINE 20 MG INJ IV SCH (08:10)
[2018-11-02] MEDS: predniSONE 10 MG TAB PO SCH (08:11)
[2018-11-02] MEDS: MESALAMINE (EC) 400 MG CAP PO SCH (08:11)
[2018-11-02] MEDS ORDERED: ASA400 PO (10:43)
[2018-11-02] MEDS ORDERED: PRED10TA PO (10:47)
[2018-11-02] MEDS ORDERED: FAMO-96 PO (10:47)
--- NOTE | 2018-11-02 10:52 | PDOCDIS ---
Discharge Instructions CONDITION [id number] Patient Condition: [id number] Stable FOLLOW UP/APPOINTMENTS Follow-up Plan 1. Therese Weeks MD Specialty: Gastroenterology Office Address [address] [facility] [place] [address] Office 2. Francisco Javier Benavides MD Specialty: Hematology/Oncology Office Address [id number] [place] [address] Office OTHER ORDERS: Other Orders: 1. Continue to take medications as per prescription. 2. Follow a low residue diet as tolerated. 3. Resume activities as tolerated 4. Follow-up with outpatient gastroenterology as instructed. 5. Follow-up with outpatient hematology in the next 2 weeks. 6. Please go to the nearest emergency room if you have any significant abdominal pain, persistent diarrhea, significant amount of blood in stool, or any other unusual signs/symptoms. MADELAINE MCCALL NP Nov 02, 2018 10:52
[2018-11-02] MEDS ORDERED: BALS750C6 PO (11:39)
[2018-11-02] MEDS ORDERED: FER325 PO (13:06)
--- NOTE | 2018-11-02 13:06 | DS ---
Date/Time of Note Date/Time of Note DATE: 11/02/18 TIME: 13:06 Discharge Summary Admission/Discharge Info Admit Date/Time Oct 27, 2018 at 14:15 Discharge Date/Time Nov 02, 2018 at 11:40 Discharge Diagnosis 1. Ulcerative colitis flare. 2. 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 3. Possible underlying hypercoagulable state. 4. Microcytic, hypochromic anemia. 5. Iron deficiency. 6. Chronic marijuana use. Patient Condition: Stable Consults 1. Therese Weeks MD, Gastroenterology. 2. Ulises Jackson MD, Urology. 3. Manfred Harper MD, Vascular Surgery. 4. Francisco Javier Benavides MD, Hematology. Procedures Colonoscopy on 10/29/2018 Impression: Significantly active colitis from the sigmoid to the proximal ascending colon with rectal sparing. Esophagogastroduodenoscopy on 10/29/2018 Impression: Mild distal esophagitis. Mild gastritis. [place] [address] Radiology Main Line: [phone] DIAGNOSTIC IMAGING REPORT Patient: TETO SEGOVIA : 1985 Age: 33 Sex: M MR #: [id number] DOS: 10/30/18 0000 Ordering MD: JUDAH CROSS MD Location: [facility] Room/Bed: [facility] [place] PROCEDURE: CT Abdomen and Pelvis with intravenous contrast. CLINICAL INDICATION: Pain. R/O SB LESIONS. CT ENTEROGRAPHY . TECHNIQUE: CT scan of the abdomen and pelvis with intravenous contrast was performed on a multi-detector high-resolution CT scanner. The patient was scanned following the uncomplicated intravenous administration of 120 cc of of Omnipaque-300 contrast. Coronal and sagittal reformatted images were obtained from the axial source images. DICOM images are available. CTDIvol 5.58 mGy, and DLP 322.71 mGy.cm. One or more of the following dose reduction techniques were used: - Automated exposure control. - Adjustment of the mA and/or kV according to patient size. - Use of iterative reconstruction technique. COMPARISON: CT 10/27/2018 FINDINGS: Lower thorax: Small calcified granuloma in the posterior left lung base. Liver: Normal. Portal vein is patent. Biliary: Gallbladder is normal. No intrahepatic or extrahepatic biliary dilatation. Pancreas: Normal. Spleen: Normal. Adrenal Glands: Normal. Urinary: There are wedge-shaped regions of poor or nonenhancement of the left kidney, worse in the lower pole. . Kidney is unremarkable. No evidence of renal stones or hydronephrosis. Bladder is unremarkable Gastrointestinal: The stomach is distended primarily with fluid. There is poor distension of the small bowel, limiting evaluation. No evidence of bowel obstruction. No evidence of appendicitis. The transverse colon and descending colon demonstrates diffuse mild wall thickening and loss of haustral features. Lymph nodes: No enlarged abdominal or pelvic lymph nodes. Vascular: Normal. Peritoneum/mesentery: No free fluid or free air. Reproductive organs: Normal. Musculoskeletal: Mild degenerative changes of the sacroiliac joints with mild ankylosis on the right. IMPRESSION: Multiple wedge shaped regions of hypoenhancement and nonenhancement of the left kidney, worse in the lower pole. Findings concerning for left pyelonephritis verses renal infarctions, although no renal vascular abnormality is seen on this limited portal venous phase of contrast. Correlate with clinical history and urinalysis. Mild bowel wall thickening and loss of haustral features of the transverse colon and descending colon. Findings may be seen with inflammatory bowel disease. Limited evaluation of the small bowel due to poor distension. Small bowel appears unremarkable. Mild degenerative changes and sclerosis of the sacroiliac joints with mild ankylosis on the right. Correlate for sacroiliitis. Hx of Present Illness This is a 33-year-old male with a past medical history of anemia and history of ulcerative colitis. He presented to the emergency room with chief complaint of lower back pain with associated diarrhea and melena. The patient was noticed to have underlying microcytic, hypochromic anemia and was admitted to inpatient setting for further treatment and evaluation. Hospital Course The patient's abdominal pain was extensively evaluated. The patient underwent a CT scan of the abdomen and pelvis without contrast on 10/27/2018 that was showing no evidence of any urolithiasis, obstructive uropathy, diverticulitis, or appendicitis. A gastroenterology consult was obtained since the patient has history of ulcerative colitis. The patient was started on IV steroids along with mesalamine. The patient was maintained on histamine 2 receptor blockers. The patient had multiple episodes of melena. However, the patient's H&H were not significantly low enough to give any blood transfusion. The patient was also noticed to have underlying iron deficiency. The patient was maintained on iron supplements. The patient's stool studies were negative for any infectious source. The patient underwent an esophagogastroduodenoscopy and colonoscopy on 10/29/2018. The patient's esophagogastroduodenoscopy was showing mild distal esophagitis and mild gastritis. The patient underwent a colonoscopy also on the same day that showed significantly active colitis from the sigmoid to the proximal ascending colon with rectal sparing, likely favoring Crohn's disease. However, the patient's pathology from colonoscopy showed histopathologic features compatible with chronic idiopathic inflammatory bowel disease; the diffuse involvement is most consistent with ulcerative colitis. The patient was maintained on IV steroids and mesalamine. The patient expressed interest for outpatient therapy with Humira. Work-up for Humira was initiated including hep atitis serology, autoimmune panel, and QuantiFERON gold. Status post esophagogastroduodenoscopy, the patient was started on a clear liquid diet and the patient's diet was advanced as tolerated to a low residue diet. On 10/30/2018, the patient started having significant abdominal pain. Therefore, the patient underwent a CT scan of the abdomen and pelvis with IV contrast that showed a partial infarction of the lower portion of the left kidney. This was an incidental finding. Because of this, the patient was evaluated by urology, vascular surgery, and hematology. It is likely that the patient had a thrombus occlusion of the renal artery supplying the infarcted portion of the kidney. As per vascular surgery, there are no interventions to reverse this. The patient probably has underlying hypercoagulable state because of his underlying ulcerative colitis. Hypercoagulable work-up was drawn on 10/31/2018 as per hematology recommendations. The patient is not an adequate candidate for anticoagulation at this time because of his underlying anemia and active UC flare with the melena. The patient will follow up with the treasury assistant as o utpatient for IV iron supplementation as well as following up the results of hypercoagulable work-up. Meanwhile, the patient's abdominal pain got better and he was able to tolerate a low residue diet without any significant gastrointestinal symptoms. The patient's H&H has improved. The patient is stable for outpatient therapy. The patient will be discharged home on a p.o. steroids and mesalamine. However, the patient's insurance does not cover mesalamine and therefore the patient was discharged home on balsalazide. Discharge Instructions 1. Continue to take medications as per prescription. 2. Follow a low residue diet as tolerated. 3. Resume activities as tolerated 4. Follow-up with outpatient gastroenterology as instructed. 5. Follow-up with outpatient hematology in the next 2 weeks. 6. Please go to the nearest emergency room if you have any significant abdominal pain, persistent diarrhea, significant amount of blood in stool, or any other unusual signs/symptoms. The patient verbalized understanding of his discharge instructions. At this time I would like to thank all the consultants for seeing the patient, doing the necessary procedures, and providing clinical recommendations. The patient was seen in collaboration with Dr. Allison. Home Meds Active Scripts Ferrous Sulfate* (Ferrous Sulfate*) 325 Mg Tabec, 325 MG PO BID, #60 TAB Prov:MADELAINE MCCALL NP 11/02/18 Balsalazide Disodium (Balsalazide Disodium) 750 Mg Capsule, 2250 MG PO TID for 30 Days, CAP Prov:MADELAINE MCCALL NP 11/02/18 Prednisone* (Prednisone*) 10 Mg Tab, 30 MG PO BID for 7 Days, #42 TAB 3 tabs (30 mg) PO BID with food. The rest of the dosing to be done by outpatient gastroenterology. Prov:MADELAINE MCCALL NP 11/02/18 Famotidine* (Pepcid*) 20 Mg Tablet, 20 MG PO BID, #20 TAB Prov:MADELAINE MCCALL NP 11/02/18 Discontinued Scripts Balsalazide Disodium (Balsalazide Disodium) 750 Mg Capsule, 2250 MG PO TID for 30 Days, CAP Prov:ELROY RABAGO 09/30/17 Prednisone* (Prednisone*) 20 Mg Tab, 40 MG PO DAILY for 6 Days, TAB Prov:MIGUEL LARRY MD 01/18/18 Prednisone* (Prednisone*) 20 Mg Tab, 40 MG PO DAILY for 30 Days, TAB Prov:ELROY RABAGO 09/30/17 Follow-up Plan 1. Therese Weeks MD Specialty: Gastroenterology Office Address [id number] [address] Office 2. Francisco Javier Benavides MD Specialty: Hematology/Oncology Office Address [id number] [address] Office Primary Care Provider Care Physician No Primary Time spent on discharge: > 30 minutes Pending Labs [facility] a non-profit [facility] [address] [address] ; Lab No: [id number] Date: 10/29/2018 SPECIMEN: A-Gastric biopsy B-Ileum biopsy C-Ascending colon biopsy D-Transverse colon biopsy E-Descending colon biopsy F-Sigmoid colon biopsy G-Rectosigmoid colon biopsy CLINICAL: Anemia; hematochezia GROSS EXAMINATION: A-Received in formalin are two fragments of nina-perez, soft tissue that measure 0.3 x 0.2 x 0.1 cm and 0.7 x 0.2 x 0.1 cm. Totally submitted in cassette A. B-Received in formalin are two fragments of nina-perez, soft tissue that measure 0.2 x 0.1 x 0.1 cm and 0.3 x 0.2 x 0.1 cm. Totally submitted in cassette B. C-Received in formalin is a fragment of nina-perez, soft tissue that measures 0.4 x 0.2 x 0.1 cm. Totally submitted in cassette C. D-Received in formalin are two fragments of nina-perez, soft tissue that measure 0.2 x 0.2 x 0.1 cm and 0.4 x 0.2 x 0.1 cm. Totally submitted in cassette D. E-Received in formalin are two fragments of nina-perez, soft tissue that measure 0.2 x 0.1 x 0.1 cm and 0.3 x 0.2 x 0.1 cm. Totally submitted in cassette E. F-Received in formalin are two fragments of nina-perez, soft tissue that measure 0.1 x 0.1 x 0.1 cm and 0.3 x 0.2 x 0.1 cm. Totally submitted in cassette F. G-Received in formalin are two fragments of nina-perez, soft tissue each measuring 0.4 x 0.2 x 0.1 cm. Totally submitted in cassette G. Continued Next Page. . . MICROSCOPIC DIAGNOSIS: A-Gastric biopsy: -- Chronic gastritis, mild and patchy, involving oxyntic and oxyntopyloric mucosa. -- No Helicobacter organisms are identified in a Giemsa stain (positive control concurrently reviewed). -- There is no evidence of malignancy. B-Ileum biopsy: -- Normal small intestinal mucosa. -- There is no increase of villous intraepithelial lymphocytes. -- No parasites are identified. -- There is no evidence of malignancy. C-Ascending colon biopsy: -- Chronic colitis, mildly active, with focal acute mucosal erosion. -- No granulomas, parasites or viral inclusions are identified. -- There is no evidence of dysplasia or malignancy. D-Transverse colon biopsy: -- Chronic colitis, active, with focal reactive atypia of crypt epithelium. -- No granulomas, parasites or viral inclusions are identified. -- There is no evidence of dysplasia or malignancy. E-Descending colon biopsy: -- Chronic colitis, mildly active with focal early acute mucosal erosion. -- No parasites, viral inclusions or granulomas are identified. -- There is no evidence of dysplasia or malignancy. F-Sigmoid colon biopsy: -- Chronic colitis, mildly active. -- No parasites, granulomas or viral inclusions are identified. -- There is no evidence of dysplasia or malignancy. G-Rectosigmoid colon biopsy: -- Chronic colitis. -- No parasites, viral inclusions or granulomas are identified. -- There is no evidence of dysplasia or malignancy. COMMENT: The overall histopathologic features in the colon are compatible with chronic idiopathic inflammatory bowel disease. The diffuse involvement is most consistent with ulcerative colitis. Correlation with endoscopic and clinical features is recommended. PATITO/BIN/breanna/alistair Date of Service: 10/29/18; Date Received: 10/30/18 Dictated: 10/31/18; Transcribed: 10/31/18; Sent by Fax: 10/31/18; Reviewed: FRANCOISE Sam M.D. Pathologist Electronically Signed 10/31/2018 STEPH SAM M.D. PATIENT: TETO SEGOVIA FILI FAM M.D. AGE/SEX/: 33/M 1985 [facility] MR NO: [id number] VISIT: [id number] ROOM NO: [id number] PHYSICIAN: Angie WEEKS, THERESE CROSS M.D., JUDAH Carmichael TISSUE EXAMINATION REPORT ANATOMIC AND CLINICAL PATHOLOGY CONSULTATION GROSS EXAMINATION PERFORMED BY: [facility] - [address] [place] [address], [address] [place] [address] ; Laboratory Tests Test 11/02/18 07:30 11/02/18 07:31 White Blood Count 12.7 10^3/ul (4.8-10.8) Red Blood Count 4.44 10^6/ul (4.70-6.10) Hemoglobin 9.0 g/dl (14.0-18.0) Hematocrit 31.0 % (42.0-52.0) Mean Corpuscular Volume 69.8 fl (82.0-101.0) Mean Corpuscular Hemoglobin 20.3 pg (29.0-33.0) Mean Corpuscular 29.0 g/dl (32.0-37.0) Hemoglobin Concent Red Cell Distribution Width 21.1 % (11.5-14.5) Platelet Count 480 10^3/UL (140-415) Mean Platelet Volume 8.4 fl (7.4-10.4) Immature Granulocytes % 0.800 % (0.001-0.429) Neutrophils % 81.1 % (39.0-77.0) Lymphocytes % 10.3 % (15.0-51.0) Monocytes % 7.7 % (0.0-11.0) Eosinophils % 0.0 % (0.0-7.0) Basophils % 0.1 % (0.0-2.0) Nucleated Red Blood Cells % 0.0 /100WBC (0.0-0.0) Immature Granulocytes # 0.100 10^3/ul (0.0-0.031) Neutrophils # 10.3 10^3/ul (1.6-7.5) Lymphocytes # 1.3 10^3/ul (0.8-2.9) Monocytes # 1.0 10^3/ul (0.3-0.9) Eosinophils # 0.0 10^3/ul (0.0-0.5) Basophils # 0.0 10^3/ul (0.0-0.1) Nucleated Red Blood Cells # 0.0 10^3/ul (0.0-0.0) Sodium Level 138 mmol/L (135-144) Potassium Level 4.4 mmol/L (3.5-5.1) Chloride Level 104 mmol/L (97-110) Carbon Dioxide Level 29 mmol/L (21-31) Anion Gap 5 (5-13) Blood Urea Nitrogen 13 mg/dl (7-20) Creatinine 0.97 mg/dl (0.61-1.24) Est Glomerular Filtrat > 60 mL/min (>60) Rate mL/min Glucose Level 117 mg/dl (70-220) Calcium Level 9.1 mg/dl (8.4-10.2) Phosphorus Level 3.9 mg/dl (2.5-4.9) Magnesium Level 2.1 mg/dl (1.7-2.5) Amylase Level 56 U/L (11-123) Lipase 83 U/L (23-300) Hepatitis B Surface Antigen NEGATIVE (NEGATIVE) Hepatitis C Antibody NEGATIVE (NEGATIVE) MADELAINE MCCALL NP Nov 02, 2018 13:06
== END 2018-11-02 11:40 | disposition home or self-care (01) | DRG 386 ==
LOC: E/R 12:36 → 5EC 14:15
PROVIDERS: ADMIT Internal Medicine; ATTEND Internal Medicine
PROC: 0DBN8ZX Excision of Sigmoid Colon, Via Natural or Artificial Opening Endoscopic, Diagnostic (ICD-10-PCS; 2018-10-29)
PROC: 0DBP8ZX Excision of Rectum, Via Natural or Artificial Opening Endoscopic, Diagnostic (ICD-10-PCS; 2018-10-29)
PROC: 0DBB8ZX Excision of Ileum, Via Natural or Artificial Opening Endoscopic, Diagnostic (ICD-10-PCS; 2018-10-29)
PROC: 0DBM8ZX Excision of Descending Colon, Via Natural or Artificial Opening Endoscopic, Diagnostic (ICD-10-PCS; 2018-10-29)
PROC: 0DB68ZX Excision of Stomach, Via Natural or Artificial Opening Endoscopic, Diagnostic (ICD-10-PCS; 2018-10-29)
PROC: 0DBK8ZX Excision of Ascending Colon, Via Natural or Artificial Opening Endoscopic, Diagnostic (ICD-10-PCS; principal; 2018-10-29 17:30)
PROC: 0DBL8ZX Excision of Transverse Colon, Via Natural or Artificial Opening Endoscopic, Diagnostic (ICD-10-PCS; 2018-10-29 17:30)
DX: K51.90 Ulcerative colitis, unspecified, without complications (principal); N28.0 Ischemia and infarction of kidney; D68.59 Other primary thrombophilia; F12.90 Cannabis use, unspecified, uncomplicated; D50.9 Iron deficiency anemia, unspecified; K20.9 Esophagitis, unspecified; K29.70 Gastritis, unspecified, without bleeding; K64.8 Other hemorrhoids; Z87.891 Personal history of nicotine dependence
CPT/HCPCS: 36415; 71045; 74176; 74177; 80048; 80053; 81003; 81240; 82150; 83036; 83540; 83605; 83615; 83690; 83735; 83890; 84100; 84443; 84484; 85025; 85045; 85300; 85302; 85305; 85610; 85613; 85651; 85730; 86021; 86038; 86140; 86147; 86255; 86480; 86803; 86850; 86900; 86901; 86920; 87045; 87075; 87086; 87340; 88305; 88312; 93005; 96374; 96375; J0696; J1170; J1610; J2270; J2405; J2916; J2920; J7030; J7040; J7042; J7512; Q9967

== ENCOUNTER 2018-12-10 10:00 | Emergency (ER) | payer BC ==
[~2018-12-10] VITALS: Ht 157.5 cm; Wt 61.0 kg
[~2018-12-10 10:00] MED LIST changes: +CIPR500T4 PO; +DOCU-144 PO; +FAMO-96 PO; +FER325 PO; +HYDR-4011 PO; +METR500T PO; +PRED10TA PO
[2018-12-10 10:03] VITALS: BP 133/71; PULSE 87; RESP 18; Ht 157.5 cm; Wt 61.0 kg
[2018-12-10] MEDS ORDERED: SOD CHLORIDE 0.9% 1,000 ML IV STA (10:28)
[2018-12-10] MEDS ORDERED: ONDANSETRON 4 MG INJ IV STA (10:28)
[2018-12-10] MEDS ORDERED: DEXAMETHASONE 10 MG/ML 1 ML INJ IV ONE (10:30)
[2018-12-10] MEDS ORDERED: SOD CHLORIDE 0.9% 100 ML ONE (11:01)
[2018-12-10] MEDS ORDERED: IOHEXOL 300MG/ML 150 ML BTL ONE (11:01)
--- NOTE | 2018-12-10 13:32 | ERD ---
ER Documentation Chief Complaint Chief Complaint bloody stoolsx 1 week, dx before with ulcerative colitis HPI 33-year-old male presenting with bloody stools x1 week. Patient has a history of ulcerative colitis and states that his medication was changed. Patient has not been taking medication for the last month and he is noticed severe pain in the abdomen with development of bloody stools over the last day. He states that the blood is mixed in with his stool and not dark or in the bowl. No clots. Denies any fevers. Medical history ulcerative colitis.. NKDA. Surgical history denies. Social history smokes marijuana ROS All systems reviewed and are negative except as per history of present illness. Medications Home Meds Active Scripts Docusate Sodium* (Colace*) 100 Mg Capsule, 100 MG PO TID, #30 CAP Prov:SID COX PA-C 12/10/18 Hydrocodone/Acetaminophen ([place] 5-325 Tablet) 1 Each Tablet, 1 TAB PO Q6H PRN for PAIN, #7 TAB Prov:SID COX PA-C 12/10/18 Prednisone* (Prednisone*) 20 Mg Tab, 40 MG PO DAILY for 4 Days, TAB Prov:SID COX PA-C 12/10/18 Metronidazole* (Flagyl*) 500 Mg Tablet, 500 MG PO TID for 10 Days, TAB Prov:SID COX PA-C 12/10/18 Ciprofloxacin Hcl* (Ciprofloxacin Hcl*) 500 Mg Tablet, 500 MG PO BID for 10 Day s, TAB Prov:SID COX PA-C 12/10/18 Ferrous Sulfate* (Ferrous Sulfate*) 325 Mg Tabec, 325 MG PO BID, #60 TAB Prov:MADELAINE MCCALL NP 11/02/18 Balsalazide Disodium (Balsalazide Disodium) 750 Mg Capsule, 2250 MG PO TID for 30 Days, CAP Prov:MADELAINE MCCALL NP 11/02/18 Prednisone* (Prednisone*) 10 Mg Tab, 30 MG PO BID for 7 Days, #42 TAB 3 tabs (30 mg) PO BID with food. The rest of the dosing to be done by outpatient gastroenterology. Prov:MADELAINE MCCALL NP 11/02/18 Famotidine* (Pepcid*) 20 Mg Tablet, 20 MG PO BID, #20 TAB Prov:MADELAINE MCCALL DEPUTY SHERIFF BUILDING GUARD 11/02/18 Allergies Allergies: Coded Allergies: No Known Allergy (Unverified , 10/27/18) PMhx/Soc History of Surgery: No Anesthesia Reaction: No Hx Neurological Disorder: No Hx Respiratory Disorders: No Hx Cardiac Disorders: No Hx Psychiatric Problems: No Hx Miscellaneous Medical Probl: Yes (Ulcerative Colitis) Hx Alcohol Use: No Hx Substance Use: Yes (marijana) Hx Tobacco Use: No Smoking Status: Never smoker FmHx Family History: No diabetes, No coronary disease, No other Physical Exam Vitals Vital Signs Date Temp Pulse Resp B/P (MAP) Pulse Ox O2 O2 Flow FiO2 Time Delivery Rate 12/10/18 97.2 87 18 133/71 100 10:03 (91) Physical Exam GENERAL: The patient is well-appearing, well-nourished, in no acute distress HEENT: Atraumatic. Conjunctivae are pink. Pupils equal, round, and reactive to light. There is no scleral icterus. Tympanic membranes clear bilaterally. Oropharynx clear. CHEST: Clear to auscultation bilaterally. There are no rales, wheezes or rhonchi. HEART: Regular rate and rhythm. No murmurs, clicks, rubs or gallops. ABDOMEN: Active bowel sounds. No distention. No organomegaly. Generalized tenderness to palpation with noted rigidity noted of the abdomen. Result Diagram: 12/10/18 1035 12/10/18 1035 Results 24 hrs Laboratory Tests Test 12/10/18 10:35 White Blood Count 10.4 10^3/ul Red Blood Count 3.99 10^6/ul Hemoglobin 10.0 g/dl Hematocrit 32.9 % Mean Corpuscular Volume 82.5 fl Mean Corpuscular Hemoglobin 25.1 pg Mean Corpuscular Hemoglobin Concent 30.4 g/dl Red Cell Distribution Width 23.5 % Platelet Count 551 10^3/UL Mean Platelet Volume 7.8 fl Immature Granulocytes % 0.500 % Neutrophils % 76.8 % Lymphocytes % 9.4 % Monocytes % 8.9 % Eosinophils % 3.9 % Basophils % 0.5 % Nucleated Red Blood Cells % 0.0 /100WBC Immature Granulocytes # 0.050 10^3/ul Neutrophils # 8.0 10^3/ul Lymphocytes # 1.0 10^3/ul Monocytes # 0.9 10^3/ul Eosinophils # 0.4 10^3/ul Basophils # 0.1 10^3/ul Nucleated Red Blood Cells # 0.0 10^3/ul Urine Color YELLOW Urine Clarity CLOUDY Urine pH 5.0 Urine Specific [place] 1.019 Urine Ketones NEGATIVE mg/dL Urine Nitrite NEGATIVE mg/dL Urine Bilirubin NEGATIVE mg/dL Urine Urobilinogen NEGATIVE mg/dL Urine Leukocyte Esterase NEGATIVE [place]/ul Urine Microscopic RBC 3 /HPF Urine Microscopic WBC 1 /HPF Urine Mucus MODERATE /HPF Urine Hemoglobin NEGATIVE mg/dL Urine Glucose NEGATIVE mg/dL Urine Total Protein NEGATIVE mg/dl Sodium Level 140 mmol/L Potassium Level 4.0 mmol/L Chloride Level 104 mmol/L Carbon Dioxide Level 30 mmol/L Anion Gap 6 Blood Urea Nitrogen 7 mg/dl Creatinine 0.85 mg/dl Est Glomerular Filtrat Rate mL/min > 60 mL/min Glucose Level 70 mg/dl Calcium Level 8.5 mg/dl Total Bilirubin 0.2 mg/dl Direct Bilirubin 0.00 mg/dl Indirect Bilirubin 0.2 mg/dl Aspartate Amino Transf (AST/SGOT) 20 IU/L Alanine Aminotransferase (ALT/SGPT) 18 IU/L Alkaline Phosphatase 70 IU/L Total Protein 6.2 g/dl Albumin 3.0 g/dl Globulin 3.20 g/dl Albumin/Globulin Ratio 0.93 Lipase 263 U/L Current Medications Medications Dose Sig/Giorgio Start Time Status Last (Trade) Ordered Route PRN Stop Time Admin Dose Reason Admin Sodium 1,000 ml @ Q1H STAT 12/10/18 DC 12/10/18 Chloride 1,000 mls/hr IV 10:28 10:37 12/10/18 11:27 Ondansetron 4 mg ONCE STAT 12/10/18 DC 12/10/18 HCl (Zofran IV 10:28 10:37 Inj) 12/10/18 10:29 10 mg ONCE ONCE 12/10/18 DC 12/10/18 Dexamethasone IV 10:30 10:37 (Decadron) 12/10/18 10:31 IV Flush 10 ml STK-MED 12/10/18 DC 12/10/18 (NS 10 ml) ONCE .ROUTE 11:01 11:40 12/10/18 11:02 Sodium 100 ml @ ud STK-MED 12/10/18 DC 12/10/18 Chloride ONCE .ROUTE 11:01 11:41 12/10/18 11:02 Iohexol 150 ml STK-MED 12/10/18 DC 12/10/18 (Omnipaque ONCE .ROUTE 11:01 11:41 300mg/ ml) 12/10/18 11:02 Procedures/MDM DIAGNOSTIC IMAGING REPORT Patient: TETO SEGOVIA : 1985 Age: 33 Sex: M MR #: [id number] DOS: 12/10/18 1028 Ordering MD: CONCETTA COX PA-C Location: [facility] Room/Bed: PROCEDURE: CT Abdomen and Pelvis with contrast. CLINICAL INDICATION: Abdominal pain TECHNIQUE: CT scan of the abdomen and pelvis with contrast was performed utilizing axial tomographic images from the domes the diaphragm to the symphysis pubis. The patient was scanned post uncomplicated intravenous administration of 90 cc of Omnipaque-300. Coronal and sagittal reformatted images were obtained from the axial source images. Images were reviewed on a high-resolution PACS workstation. The total exam CTDI equals 6.81 mGy and the total exam DLP equals 328.03 mGy-cm. One or more of the following dose reduction techniques were used: Automated exposure control, adjustment of the mA and / or kV according to patient size, or use of iterative reconstruction technique. DICOM images are available. COMPARISON: CT 10/30/2018; CT 10/27/2018 FINDINGS: The lung bases are clear . The liver is normal in size and contour. No focal intrahepatic masses are identified. There is no intra or extrahepatic biliary dilatation. The gallbladder is unremarkable by CT criteria. The spleen, pancreas, and adrenal glands are unremarkable. There is patchy parenchymal enhancement of the lower pole of the left kidney with parenchymal thinning. No hydronephrosis or hydroureter is identified. No renal parenchymal mass is identified. The urinary bladder is unremarkable. The bowel demonstrates normal course and caliber. There is no evidence of bowel obstruction. There is diffuse colonic mucosal thickening. The appendix is normal in appearance. No intraperitoneal free fluid, free air or abscess identified. There are multiple prominent right lower quadrant mesenteric lymph nodes. No retroperitoneal or inguinal adenopathy is identified. The abdominal aorta and major branching vessels are normal in caliber. The osseous structures are unremarkable. No significant subcutaneous soft tissue abnormality is identified. IMPRESSION: 1. Diffuse colonic mucosal thickening, consistent with pancolitis. Findings may be infectious or inflammatory etiology. No intraperitoneal free air or abscess is seen. 2. Multiple prominent right lower quadrant mesenteric lymph nodes, likely reactive. 3. Patchy parenchymal enhancement of the left kidney with scarring of the left lower pole. ER Course: 1L NS and IV decadron given in ED MDM: 33-year-old male presenting with flare of ulcerative colitis. There is no abscess formation noted on the skin and patient does not have leukocytosis. Vitals are stable. Abdomen is nonrigid. Patient has findings on the CT scan showing pancolitis and he will be treated with oral antibiotics and steroids. I do not feel there is indication for admission at this time as patient is stable. Patient is recommended to follow-up with GI specialist within the next 1 to 2 days. Patient is told symptoms change or worsen to return immediately to the ER. Patient is discharged with strict ER precautions. All questions answered at discharge Departure Diagnosis: Primary Impression: Ulcerative colitis Condition: Stable Patient Instructions: Ulcerative Colitis Additional Instructions: FOLLOW UP WITH YOUR PRIMARY CARE PHYSICIAN TOMORROW.Return to this facility if you are not improving as expected. SID COX PA-C Dec 10, 2018 13:32
== END 2018-12-10 12:31 | disposition home or self-care (01) ==
LOC: FTE 10:00
DX: K51.90 Ulcerative colitis, unspecified, without complications (principal)
CPT/HCPCS: 36415; 74177; 80053; 81001; 83690; 85025; 96361; 96374; 96375; 99285; J1100; J2405; J7030; Q9967; Z7610